=== PATIENT | female | born 1995 | race Hispanic/Latino ===

== ENCOUNTER 2019-10-22 17:14 | Emergency (ER) | payer OTHER, SELFPAY ==
[2019-10-22 19:36] LABS: Urine Amorphous Sediment 1+ /HPF (NONE SEEN); Urine Bacteria <20 /HPF (<20); Urine Culture Reflex Order NOT NEEDED
[2019-10-22 19:37] LABS: Urine Blood 2+ (NEG); Urine Glucose NEGATIVE (NEG); Urine Protein NEGATIVE (NEG); Urine Specific Gravity >1.030 (1.005-1.030); Urine pH 6.5 (5.0-7.0)
--- NOTE | 2019-10-22 19:57 | RAD REPORT ---
EXAM DESCRIPTION: RAD - Forearm Right - 10/22/2019 7:43 pm CLINICAL HISTORY: Right arm pain FINDINGS: No fracture is seen.
--- NOTE | 2019-10-22 19:58 | RAD REPORT ---
EXAM DESCRIPTION: RAD - Humerus Right - 10/22/2019 7:52 pm CLINICAL HISTORY: Right arm pain FINDINGS: No fracture is seen
--- NOTE | 2019-10-22 19:58 | RAD REPORT ---
EXAM DESCRIPTION: RAD - Lumbar Spine 3 Views - 10/22/2019 7:49 pm CLINICAL HISTORY: Back pain FINDINGS: The alignment of the lumbar spine is satisfactory. No fracture or dislocation is seen.
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
[2019-10-22] MEDS ORDERED: ACETAMINOPHEN 325 MG TABLET ONE (20:25)
[2019-10-22] MEDS ORDERED: IBUPROFEN 400 MG TAB ONE (20:25)
[2019-10-22 20:51] VITALS: BP 128/70; TEMP 98.2; O2SAT 98
== END 2019-10-22 20:42 | disposition home or self-care (01) ==
LOC: ER 17:14
DX: M79.601 Pain in right arm (principal); M25.551 Pain in right hip; V49.40XA Driver injured in collision with unspecified motor vehicles in traffic accident, initial encounter
CPT/HCPCS: 72100; 72170; 81003; 81015; 81025; 99284

== ENCOUNTER 2022-05-23 01:55 | Emergency (ER) | payer BC, OTHER ==
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
[2022-05-23 02:55] LABS: Urine Blood 3+ (Negative); Urine Glucose Negative (Negative); Urine Protein 2+ (Negative); Urine Specific Gravity >=1.030 (1.005-1.030); Urine pH 5.5 (5.0-7.0)
[2022-05-23 03:01] LABS: Absolute Lymphocytes (CBC) 3.1 K/uL (0.7-4.9); Hematocrit 33.8 % (36.0-45.0); MCV 84.9 fL (80-100); MPV 7.2 fL (7.6-11.3); RBC Red Blood Cell Count 3.99 M/uL (3.86-4.86)
[2022-05-23 03:08] LABS: Urine Bacteria <20 /HPF (<20); Urine Mucus Slight /HPF (None Seen); Urine RBC >50 /HPF (None Seen)
[2022-05-23 03:55] LABS: ALT/SGPT 17 U/L (13-56); AST/SGOT 3 U/L (15-37); Alkaline Phosphatase 61 U/L (45-117); BUN Blood Urea Nitrogen 7 mg/dL (7-18); Bicarbonate 24 mmol/L (21-32); Bilirubin Total 0.4 mg/dL (0.2-1.0); Glomerular Filtration Rate 127 ml/min (=/>90); Glucose Level 103 mg/dL (74-106); Potassium 3.5 mmol/L (3.5-5.1); Sodium Level 137 mmol/L (136-145)
[2022-05-23 03:56] LABS: Albumin 3.2 g/dL (3.4-5.0); HCG, Quantitative 48983 mIU/mL (1-3); Protein, Total 7.4 g/dL (6.4-8.2)
--- NOTE | 2022-05-23 04:18 | ER ---
Nurse's Notes [facility] Name: Rosette Olson Age: 26 yrs Sex: Female : 1995 Arrival Date: 05/23/2022 Time: 01:59 Bed 6 Private MD: Diagnosis: Vaginal bleeding in first trimester Presentation: 05/23 02:11 Chief complaint: Patient states: I started bleeding a couple hours ago, its bright red aa9 blood, I have minimal cramping that comes and goes, I am 11 weeks . Ebola Screen: No symptoms or risks identified at this time. Initial Sepsis Screen: Does the patient meet any 2 criteria? No. Patient's initial sepsis screen is negative. Does the patient have a suspected source of infection? No. Patient's initial sepsis screen is negative. Risk Assessment: Do you want to hurt yourself or someone else? Patient reports no desire to harm self or others. Onset of symptoms was May 23, 2022. 02:11 Method Of Arrival: Ambulatory aa9 02:11 Acuity: JOHNNY 3 aa9 02:16 Coronavirus screen: Vaccine status: Patient reports receiving the 2nd dose of the covid aa9 vaccine. Triage Assessment: 02:13 General: Appears in no apparent distress. uncomfortable, obese, Behavior is calm, aa9 cooperative, appropriate for age. Pain: Complains of pain in right lower quadrant and left lower quadrant Is intermittent. EENT: No signs and/or symptoms were reported regarding the EENT system. Neuro: Level of Consciousness is awake, alert, obeys commands, Oriented to person, place, time, situation. Cardiovascular: Patient's skin is warm and dry. Respiratory: Airway is patent Respiratory effort is even, unlabored. GI: No signs and/or symptoms were reported involving the gastrointestinal system. : Reports vaginal bleeding that is bright red. Derm: Skin is intact, is healthy with good turgor. 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 - Social history:: Smoking status: Patient denies any tobacco usage or history of. Screenin:14 Abuse screen: Denies threats or abuse. Denies injuries from another. Nutritional aa9 screening: No deficits noted. Tuberculosis screening: No symptoms or risk factors identified. 04:25 [facility] ED Fall Risk Assessment (Adult) Score/Fall Risk Level 0 - 2 = Low Risk. as6 Assessment: 02:02 General: Appears comfortable, Behavior is calm, cooperative. Pain: Denies pain. Neuro: ha1 Level of Consciousness is awake, alert, obeys commands, Oriented to person, place, time, situation. Cardiovascular: Capillary refill < 3 seconds Patient's skin is warm and dry. Respiratory: Airway is patent Respiratory effort is even, unlabored, Respiratory pattern is regular, symmetrical. GI: Abdomen is non-distended, obese. : Urine is blood tinged, Reports vaginal bleeding that is light flow. EENT: No deficits noted. No signs and/or symptoms were reported regarding the EENT system. Derm: Skin is pink, warm \T\ dry. Musculoskeletal: Circulation, motion, and sensation intact. Range of motion: intact in all extremities. 03:02 Reassessment: Patient and/or family updated on plan of care and expected duration. Pain ha1 level reassessed. Patient is alert, oriented x 3, equal unlabored respirations, skin warm/dry/pink. Patient denies pain at this time. 04:00 Reassessment: Patient and/or family updated on plan of care and expected duration. Pain ha1 level reassessed. Patient is alert, oriented x 3, equal unlabored respirations, skin warm/dry/pink. Patient denies pain at this time. Vital Signs: 02:02 BP 118 / 88; Pulse 94; Resp 21; Pulse Ox 99% on R/A; ha1 02:11 BP 118 / 88; Pulse 94; Resp 23 S; Temp 97.8(O); Pulse Ox 99% on R/A; aa9 02:16 Weight 113.4 kg (R); Height 5 ft. 3 in. (160.02 cm) (R); aa9 03:00 BP 102 / 50; Pulse 84; Resp 20 S; Pulse Ox 99% on R/A; ha1 04:00 BP 120 / 64; Pulse 78; Resp 18 S; Pulse Ox 99% on R/A; ha1 02:16 Body Mass Index 44.29 (113.40 kg, 160.02 cm) aa9 ED Course: 01:59 Patient arrived in ED. ja2 02:00 Tammy Butler MD is Attending Physician. sd2 02:03 Shashank Carlson, RN is Primary Nurse. as6 02:12 Triage completed. aa9 02:14 Arm band placed on. aa9 02:14 Patient has correct armband on for positive identification. Bed in low position. Call aa9 light in reach. Adult w/ patient. 02:40 Inserted saline lock: 22 gauge in left upper arm, using aseptic technique. Blood ha1 collected. 02:47 CMP Sent. ha1 02:47 Abo/rh Typing Sent. ha1 02:47 CBC with Diff Sent. ha1 02:47 HCG-Quantitative Sent. ha1 03:26 US 1st Trimest Single 1st Fetus In Process Unspecified. EDMS 04:24 No provider procedures requiring assistance completed. IV discontinued, intact, as6 bleeding controlled, No redness/swelling at site. Pressure dressing applied. Administered Medications: No medications were administered Medication: 04:24 VIS not applicable for this client. as6 Outcome: 04:17 Discharge ordered by . sd2 04:24 Discharged to home ambulatory, with family. as6 04:24 Condition: stable 04:24 Discharge instructions given to patient, Instructed on discharge instructions, follow up and referral plans. Demonstrated understanding of instructions, follow-up care. 04:25 Patient left the ED. as6 Signatures: Dispatcher [employer] EDMA Dru NanciShashank Ag, RN RN as6 Tammy Butler MD MD sd2 Augustina Myers, RN RN aa9 Sandy Snyder, RN RN ha1
--- NOTE | 2022-05-23 04:19 | EDPHYS ---
Physician Documentation [facility] Name: Rosette Olson Age: 26 yrs Sex: Female : 1995 Arrival Date: 05/23/2022 Time: 01:59 Bed 6 Private MD: ED Physician Tammy Butler HPI: 05/23 02:20 This 26 yrs old Female presents to ER via Ambulatory with complaints of sd2 Vaginal Bleeding, + Preg <12wks. 02:20 26 yo F presents with CC of vaginal bleeding that started tonight. Reports she was sd2 laying in bed when she saturated her underwear with bright red blood. Denies any passage of tissue or clots and bleeding has slowed since then with currently spotting. Reports associated lower abdominal cramping. She is 11 weeks and has had an US demonstrating an IUP at 7.5 weeks. She is with history of a prior miscarriage. . 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 - Social history:: Smoking status: Patient denies any tobacco usage or history of. ROS: 02:20 Constitutional: Negative for fever, chills, and weight loss, Eyes: Negative for injury, sd2 pain, redness, and discharge, Cardiovascular: Negative for chest pain, palpitations, and edema, Respiratory: Negative for shortness of breath, cough, wheezing. 02:20 : Negative for dysuria, urinary frequency, hesitancy, urgency and hematuria. Positive for vaginal bleeding. 02:20 MS/Extremity: Negative for injury and deformity, Skin: Negative for injury, rash, and discoloration, Neuro: Negative for headache, numbness and tingling. 02:20 Abdomen/GI: Positive for abdominal cramps, Negative for abdominal pain, nausea, vomiting, diarrhea. Exam: 02:20 Constitutional: This is a well developed, well nourished patient who is awake, alert, sd2 and in no acute distress. Head/Face: Normocephalic, atraumatic. Eyes: EOMI, normal conjunctiva bilaterally Chest/axilla: Normal chest wall appearance and motion. Nontender with no deformity. Cardiovascular: Regular rate and rhythm with a normal S1 and S2. No gallops, murmurs, or rubs. 2+ distal pulses. Respiratory: Lungs have equal breath sounds bilaterally, clear to auscultation and percussion. No rales, rhonchi or wheezes noted. No increased work of breathing, no retractions or nasal flaring. Abdomen/GI: Soft, ND, mild lower abdominal tenderness without rebound or guarding Skin: Warm, dry with normal turgor. Normal color with no rashes, no lesions, and no evidence of cellulitis. MS/ Extremity: Pulses equal, no cyanosis. Neurovascular intact. Full, normal range of motion. Ambulatory without difficulty. Psych: Awake, alert, with orientation to person, place and time. Behavior, mood, and affect are within normal limits. Vital Signs: 02:02 BP 118 / 88; Pulse 94; Resp 21; Pulse Ox 99% on R/A; ha1 02:11 BP 118 / 88; Pulse 94; Resp 23 S; Temp 97.8(O); Pulse Ox 99% on R/A; aa9 02:16 Weight 113.4 kg (R); Height 5 ft. 3 in. (160.02 cm) (R); aa9 03:00 BP 102 / 50; Pulse 84; Resp 20 S; Pulse Ox 99% on R/A; ha1 04:00 BP 120 / 64; Pulse 78; Resp 18 S; Pulse Ox 99% on R/A; ha1 02:16 Body Mass Index 44.29 (113.40 kg, 160.02 cm) aa9 MDM: 02:10 Patient medically screened. sd2 02:20 Differential diagnosis: ectopic , threatened , incomplete , sd2 anemia among others. Data reviewed: vital signs, nurses notes. 04:15 Data reviewed: lab test result(s), radiologic studies. Counseling: I had a detailed sd2 discussion with the patient and/or guardian regarding: the historical points, exam findings, and any diagnostic results supporting the discharge/admit diagnosis, lab results, radiology results, the need for outpatient follow up, to return to the emergency department if symptoms worsen or persist or if there are any questions or concerns that arise at home. ED course: Labs and imaging reviewed. HCG appropriate for dates. Rh negative but patient not at threshold for needing Rhogam at this time. US with normal IUP and FHTs. Advised patient of results and need for follow up for repeat HCG in 48 hours with her OBGYN. She is comfortable with plan for discharge and outpatient follow up and verbalizes understanding of strict return precautions. . 05/23 02:19 Order name: CBC with Diff; Complete Time: 03:22 sd2 05/23 02:19 Order name: Abo/rh Typing; Complete Time: 03:37 sd2 05/23 02:19 Order name: CMP; Complete Time: 04:14 sd2 05/23 02:19 Order name: Urine Microscopic Only; Complete Time: 03:22 sd2 05/23 02:19 Order name: HCG-Quantitative; Complete Time: 04:14 sd2 05/23 02:55 Order name: Urine Dipstick-Ancillary; Complete Time: 03:22 EDMS 05/23 02:19 Order name: Urine Dipstick-Ancillary (obtain specimen); Complete Time: 03:07 sd2 05/23 02:19 Order name: 1st Trimest Single 1st Fetus sd2 05/23 03:02 Order name: Urine --Ancillary (enter results) wm Administered Medications: No medications were administered Disposition Summary: 05/23/22 04:17 Discharge Ordered Location: Home sd2 Problem: new sd2 Symptoms: have improved sd2 Condition: Stable sd2 Diagnosis - Vaginal bleeding in first trimester sd2 Followup: sd2 - With: Private Physician - When: 48 Hours - Reason: Repeat Beta-HCG (48 Hours) Discharge Instructions: - Discharge Summary Sheet sd2 - Threatened Miscarriage sd2 Forms: - Medication Reconciliation Form sd2 - Thank You Letter sd2 - Antibiotic Education sd2 - Prescription Opioid Use sd2 Signatures: Dispatcher [employer] Shashank Velasquez, DOMINIK RN as6 Tammy Butler MD MD sd2 Augustina Myers RN RN aa9
[2022-05-23 04:25] LABS: Urine Specific Gravity/Preg >1.030 (1.005-1.030)
[2022-05-23 04:35] VITALS: O2SAT 99
[2022-05-23 04:40] VITALS: TEMP 97.8
[2022-05-23 04:51] VITALS: BP 120/64
--- NOTE | 2022-05-23 19:38 | RAD REPORT ---
EXAM DESCRIPTION: US , Limited CLINICAL HISTORY: The patient is 26 years old and is Female; VAGINAL BLEEDING TECHNIQUE: Real-time limited ultrasound of the maternal uterus with image documentation. COMPARISON: No relevant prior studies available. FINDINGS: BIOMETRICS: Single living IUP with heart tones measuring approximately 169 bpm, e stimated gestational age 11 weeks 0 days +/- 6 days by CRL (4.4 cm). PLACENTA: Posterior placenta. UTERUS: Myometrial contraction incidentally noted. The uterus measures 6.4 x 10.6 x 7.3 cm. CERVIX: Small nabothian cyst. ADNEXA: Unremarkable. The right ovary measures 3.4 x 1.6 x 3.2 cm. The left ovary measures 4.4 x 2 x 3.3 cm. No abnormal intrapelvic free fluid or adnexal mass. IMPRESSION: Single living IUP with heart tones measuring approximately 169 bpm, estimated gest ational age 11 weeks 0 days +/- 6 days by CRL (4.4 cm). Electronically signed by: Cong Pacheco MD 05/23/2022 3:48 AM LEGAL RECRUITER Due to temporary technical issues with the PACS/Fluency reporting system, reports are being signed by the in house radiologists without review as a courtesy to insure prompt reporting. The interpreting radiologist is fully responsible for the content of the report.
== END 2022-05-23 04:25 | disposition home or self-care (01) ==
LOC: ER 01:55
DX: O20.9 Hemorrhage in early pregnancy, unspecified (principal); Z3A.11 11 weeks gestation of pregnancy
CPT/HCPCS: 36415; 76801; 80053; 81003; 81015; 81025; 84702; 85025; 86900; 86901; 99284

== ENCOUNTER 2024-03-14 23:17 | Emergency (ER) | payer OTHER ==
--- OUTSIDE RECORDS SUMMARY | 2024-03-14 23:21 | XMS REPORT | Continuity of Care Document ---
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 NONREACTIVE Done by [employer] HIV Ag/Ab Combo Screen COMPREHENSIVE METABOLIC [id number] 10:26:00* Test Item Value Reference Range Interpretation Comme nts SODIUM (test code = NA) 138 mEq/L 135-145 N POTASSIUM (test code = K) 4.4 mEq/L 3.5-5.0 N CHLORIDE (test code = CL) 102 mEq/L 100-115 N CARBON DIOXIDE (test code = CO2) 27 mEq/L 22-31 N ANION GAP (test code = GAP) 13.40 10-20 N GLUCOSE (test code = GLU) 79 mg/dL 65-110 N BLOOD UREA NITROGEN (test code = BUN) 4 mg/dL 7-18 L GLOMERULAR FILTRATION RATE (test code = GFR) 132 ml/min >60 N The Glomerular Filtration Rate is a calculated parameterbased on serum Creatinine, patient age and sex. GFR valuesless than 60 mL/min/1.73 square meters are indicative ofChronic Kidney Disease. Values less than 15 mL/min/1.73square meters indicate Kidney failure. The calculation forGFR is based on the CKD-EPI (202) calculation. This formulais race indifferent and is the recommended formula for GFRby the National Kidney Foundation for Adults.The GFR will not calculate if the sex is unknown or if thepatient's age is <18 years. CREATININE (test code = CREAT) 0.5 mg/dL 0.5-1.0 N TOTAL PROTEIN (test code = PROT) 6.4 gm/dL 6.3-8.2 N ALBUMIN (test code = ALB) 2.9 gm/dL 3.4-4.8 L CALCIUM (test code = CA) 9.0 mg/dL 8.4-10.2 N BILIRUBIN TOTAL (test code = BILT) 0.4 mg/dL 0.2-1.0 N SGOT/AST (test code = AST) 8 units/L 15-37 L SGPT/ALT (test code = ALT) 12 units/L 12-78 N ALKALINE PHOSPHATASE TOTAL (test code = ALKP) 62 units/L 46-116 N CBC W/AUTO [id number] 09:20:00* Test Item Value Reference Range Interpretation Comme nts WHITE BLOOD CELL (test code = WBC) 10.8 K/mm3 6.5-12.3 N RED BLOOD CELL (test code = RBC) 3.77 M/mm3 3.51-4.69 N HEMOGLOBIN (test code = HGB) 11.1 g/dL 10.1-13.8 N HEMATOCRIT (test code = HCT) 32.8 % 32.5-41.8 N MEAN CELL VOLUME (test code = MCV) 87.0 fL 84.6-96.6 N MEAN CELL HGB (test code = MCH) 29.4 pg 27.3-33.9 N MEAN CELL HGB CONCETRATION ( test code = MCHC) 33.8 gm/dL 32.0-34.2 N RED CELL DISTRIBUTION WIDTH (test code = RDW) 13.3 % 12.2-16.3 N PLATELET COUNT (test code = PLT) 233 K/mm3 134-363 N MEAN PLATELET VOLUME (test c ode = MPV) 9.7 fL 9.2-12.7 N NEUTROPHIL % (test code = NT%) 73.5 % 57.9-77.3 N LYMPHOCYTE % (test code = LY%) 20.7 % 14.5-29.7 N MONOCYTE % (test code = MO%) 5.0 % 3.6-10.2 N EOSINOPHIL % (test code = EO%) 0.3 % 0.0-3.0 N BASOPHIL % (test code = BA%) 0.2 % 0.1-0.9 N NEUTROPHIL # (test code = NT#) 7.9 K/mm3 LYMPHOCYTE # (test code = LY#) 2.2 K/mm3 MONOCYTE # (test code = MO#) 0.5 K/mm3 EOSINOPHIL # (test code = EO#) 0.03 K/mm3 BASOPHIL # (test code = BA#) 0.0 K/mm3 RBC MORPHOLOGY REQUIRED (sofiya t code = RBCM) NORMAL NORMAL PLATELET MORPHOLOGY REQUIRED (test code = PLTMR) NORMAL NORMAL URINALYSIS [id number] 08:05:00* Test Item Value Reference Range Interpretation Comme nts UA COLOR (test code = COLU) STRAW YELLOW UA APPEARANCE (test code = APPU) CLEAR CLEAR UA GLUCOSE DIPSTICK (test co de = DGLUU) NEGATIVE NEG UA BILIRUBIN DIPSTICK (test code = BILU) NEGATIVE NEG UA KETONE DIPSTICK (test cod e = KETU) NEGATIVE NEG UA SPECIFIC GRAVITY (test co de = SGU) 1.004 1.001-1.035 N UA BLOOD DIPSTICK (test code = KIKI) 2+ NEG A UA PH DIPSTICK (test code = SOFIE) 7.0 5-9 UA PROTEIN DIPSTICK (test co de = PROU) NEGATIVE NEG UA UROBILINIOGEN DIPSTICK (test code = URO) NEGATIVE mg/dL NEG UA NITRITE DIPSTICK (test co de = MARILYNN) NEG NEG UA LEUKOCYTE ESTERASE DIPSTI CK (test code = LEUU) NEG NEG UA WBC (test code = WBCU) 0-2 #/hpf NONE SEEN UA RBC (test code = RBCU) 3-5 #/hpf NONE SEEN A UA EPITHELIAL CELLS (test co de = EPIU) RARE #/HPF RARE-FEW UA BACTERIA (test code = BACU) RARE /HPF RARE-FEW Specimen Comment: CARL POLANCO SAMPLE: CLEAN CATCH- US FET BIO PH MN W/O NST 2022-10-01 00:00:00 [facility] [place] [facility] : 1995 Sex: F Patient Name: OXANA LARSON Unit No: [id number] EXAMS: CPT CODE: [id number] US FET BIO PH MN W/O NST 94361 PROCEDURE INFORMATION: Exam: US , Limited Exam date and time: 10/01/2022 9:54 AM Age: 26 years old Clinical indication: Condition or disease; Other: Vaginal bleeding 30 wks; Lmp or gestational age (weeks): 30wks; 2nd ; ; Additional info: 30.0 weeks, vaginal bleeding TECH NIQUE: Imaging protocol: Real-time ultrasound of the maternal uterus with image documentation. Exam focused on the clinical indication. COMPARISON: No relevant prior studies available. Findings: Presentation: Vertex. Heart rate: 132 bpm. Placenta: Posterior. grade 2 placenta with no evidence of placenta previa nor retroplacental fluid collection. Amniotic fluid: Adequate with amniotic fluid index of 15.4 cm. Cervix: 3.6 cm. Impression: Live intrauterine gestation. PROCEDURE INFORMATION: Exam: US Biophysical Profile Without Non-Stress Test Exam date and time: 10/01/2022 9:54 AM Age: 26 years old Clinical indication: Condition or disease; Other: Vaginal bleeding 30 wks; Lmp or gestational age (weeks): 30wks; 2nd ; ; Additional info:30.0 weeks, vaginal bleeding TECHNIQUE: Imaging protocol: US biophysical profile without non-stress testing. COMPARISON: No relevant prior studies available. FINDINGS: BIOPHYSICAL PROFILE: breathing movement (BPP): 2 out of 2. body movement (BPP): 2 out of 2. tone (BPP): 2 out of2. Amniotic fluid (BPP): 2 out of 2. [facility] NAME: OXANA LARSON Radiology Department PHYS: Malini Bowers MD [address] : 1995 AGE: 26 SEX: F [place], [place] [address] LOC: F.3042 A PHONE #: [phone] EXAM DATE: 10/01/2022 STATUS: ADM IN FAX #: [phone] RAD NO: Page 1 Signed Report (CONTINUED) Patient Name: OXANA LARSON Unit No: [id number] EXAMS: CPT CODE: [id number] US FET BIO PH MN W/O NST 29647 (Continued) IMPRESSION: Biophysical profile score is 8 out of 8. at 1116 Reported and signed by: Garland Perez MD CC: Malini Alejo MD; Carrillo Worley MD Technologist: Nanci Law RDMS Probe: Trnscrbd D/ (1116) GCD.CPS Orig Print D/T: S: 10/01/2022 (1116) [facility] NAME: CARLOS LARSONA Radiology Department PHYS: Malini Bowers MD [address] : 1995 AGE: 26 SEX: F [place] [address] LOC: F.3042 A PHONE #: [phone] EXAM DATE: 10/01/2022 STATUS: ADM IN FAX #: [phone] RAD NO: Page 2 Signed Report Patient Name: OXANA LARSON Unit No: [id number] EXAMS: CPT CODE: [id number] FET BIO PH MN W/O NST [address]59[address] (Continued) [facility] NAME: OXANA LARSON Radiology De partment PHYS: Malini Bowers MD [address] : 1995 AGE: 26 SEX: F [place] [address] LOC: F.3042 A PHONE #: [phone] EXAM DATE: 10/01/2022 STATUS: ADM IN FAX #: [phone] RAD NO: Page 3 Signed ReportRHO (D) IMMUNE [id number] 04:24:28* Test Item Value Reference Range Interpretation Comme nts RHIG CANDIDATE? (test code = 5055) Yes- see comment A Patient is a candidate for RhIg- Patient is Rh Negative and currently .Performe d at [facility] Laboratory Services - [facility] Blood [address] [place] [address]Lhtg Free: [phone] No. [id number] Lab Interpretation (test code = 40223-7) Abnormal [facility] (Lab Only)2022-05-24 04:23:22* Test Item Value Reference Range Interpretation Comme nts ABO & RH (test code = 20) O Negative Performed at [facility] Laboratory [facility] Blood [address] Free: [phone] No. [id number] [facility] and Screen - ONCE [id number] 04:01:23 * Test Item Value Reference Range Interpretation Comme nts ABO & RH (test code = 20) O Negative Performed at [facility] Blood [address] Free: [phone] No. [id number] IAT (test code = 1185) Negative Performed at [facility] Blood [address] Free: [phone] No. [id number] [facility]villeTHYROID STIMULATING [id number] 19:24:00 * Test Item Value Reference Range Interpretation Comme nts TSH (test code = 8796431317) See_Comment [[employer]] The system which generated this result transmitted reference range: 0.45 - 4.70 mIU/L. The reference range was not used to interpret this result as normal/abnormal. Lab Interpretation (test code = 24994-0) Normal [facility]ville[facility] STIMUL[facility] [id number] 19:24:00 * Test Item Value Reference Range Interpretation Comme nts TSH (test code = 2655358066) See_Comment [[employer]] The system which generated this result transmitted reference range: 0.45 - 4.70 mIU/L. The reference range was not used to interpret this result as normal/abnormal. Lab Interpretation (test code = 37044-7) Normal [facility] GreenvilleLIPID PANEL (77844)(TOTAL CHOLESTEROL, TRIGLYCERIDES, HDL)2019-09-19 18:50:00* Test Item Value Reference Range Interpretation Comme nts CHOL (test code = 1017032071) 161 mg/dL 120-200 HDL (test code = 3965482132) 54 mg/dL >50 HDLC RATIO (test code = 8148083064) See_Comment [[employer]] The system which generated this result transmitted reference range: <=4.5. The reference range was not used to interpret this result as normal/abnormal. TRIG (test code = 3458289836) 63 mg/dL 30-170 LDL CHOL (test code = 79562-0) 94 mg/dL See_Comment [[employer]] The system which generated this result transmitted reference range: <=160. The reference range was not used to interpret this result as normal/abnormal. VLDL (test code = 8311223737) 13 mg/dL 5-60 Lab Interpretation (test code = 48745-3) Normal [facility] METABOLIC PANEL (NA, K, CL, CO2, GLUCOSE, BUN, CREATININE, CA)2019-09-19 18:50:00* Test Item Value Reference Range Interpretation Comme nts NA (test code = 8654950320) 138 mmol/L 135-145 K (test code = 5389356570) 5.0 mmol/L 3.5-5 CL (test code = 2779614560) 103 mmol/L 98-108 CO2 TOTAL (test code = 5315898994) 26 mmol/L 23-31 AGAP (test code = 0654679264) 2-16 BUN (test code = 1562192064) 12 mg/dL 7-23 GLUCOSE (test code = 2015716460) 113 mg/dL 70-110 H CREATININE (test code = 1167198615) 0.52 mg/dL 0.5-1.04 CALCIUM (test code = 9149659320) 9.2 mg/dL 8.6-10.6 eGFR Calculation (Non-) (test code = 8422959554) mL/min/1.73m2 eGFR Calculation () (test code = 1128204185) mL/min/1.73m2 TIM (test code = TIM) Association of [...] or abnormalities in imaging tests). Lab Interpretation (test code = 62094-8) Abnormal [facility]ville[facility]IPID PANEL (32697)(TOTAL CHOLESTEROL, TRIGLYCERIDES, HDL)2019-09-19 18:50:00* Test Item Value Reference Range Interpretation Comme nts CHOL (test code = 3489129575) 161 mg/dL 120-200 HDL (test code = 2016686582) 54 mg/dL >50 HDLC RATIO (test code = 6719647741) See_Comment [[employer]] The system which generated this result transmitted reference range: <=4.5. The reference range was not used to interpret this result as normal/abnormal. TRIG (test code = 1112193104) 63 mg/dL 30-170 LDL CHOL (test code = 32869-5) 94 mg/dL See_Comment [[employer]ira] The system which generated this result transmitted reference range: <=160. The reference range was not used to interpret this result as normal/abnormal. VLDL (test code = 4068015612) 13 mg/dL 5-60 Lab Interpretation (test code = 80536-7) Normal [facility] METABOLIC PANEL (NA, K, CL, CO2, GLUCOSE, BUN, CREATININE, CA)2019-09-19 18:50:00* Test Item Value Reference Range Interpretation Comme nts NA (test code = 0771378555) 138 mmol/L 135-145 K (test code = 1495662034) 5.0 mmol/L 3.5-5 CL (test code = 4207919402) 103 mmol/L 98-108 CO2 TOTAL (test code = 0304119674) 26 mmol/L 23-31 AGAP (test code = 1403058176) 2-16 BUN (test code = 3659405452) 12 mg/dL 7-23 GLUCOSE (test code = 2452500511) 113 mg/dL 70-110 H CREATININE (test code = 7446827928) 0.52 mg/dL 0.5-1.04 CALCIUM (test code = 8065357491) 9.2 mg/dL 8.6-10.6 eGFR Calculation (Non-) (test code = 3331326153) mL/min/1.73m2 eGFR Calculation () (test code = 7230008839) mL/min/1.73m2 TIM (test code = TIM) Association of [...] or abnormalities in imaging tests). Lab Interpretation (test code = 57082-0) Abnormal [facility]ville[facility]YCOS[facility]ATED HEMOGLOBIN (A1C)2019-09-19 17:42:00* Test Item Value Reference Range Interpretation Comme nts HGB A1C (test code = 4548-4) 5.7 % 4-6 Lab Interpretation (test cod e = 55095-0) Normal [facility] HEM[facility]GLOBIN (A1C)2019-09-19 17:42:00* Test Item Value Reference Range Interpretation Comme nts HGB A1C (test code = 4548-4) 5.7 % 4-6 Lab Interpretation (test cod e = 40485-2) Normal [facility] Notes Date/Time Note Provider Source 2022-11-30 09:34:00 [id number] [facility] [address], [place] [address] PATIENT NAME: OXANA LARSON ADMIT DATE: 11/23/22 ACCOUNT NO: [id number] ROOM NO: F.2001 AGE: 26 SEX: F ADMITTING PHYSICIAN: Carrillo Ware MD ATTENDING PHYSICIAN: Carrillo Ware MD Provider Query QUERY TEXT: Condition Blood 360MD Query related questions should be directed to: [facility] Coding Query Helpline Based on your clinical judgment, can you provide the known or suspected condition(s) that represent(s) the clinical indicators listed below? The medical record reflects the diagnosis/procedure of [Insert diagnosis/procedure] and associated [Insert disease process, trauma or surgery]. [Insert source document(s) and date(s)]: The patient's Clinical Indicators include: s/p delivery - OB Delivery Note 11/24/2022 EBL at delivery (ml's): 700 - OB Delivery Note 11/24/2022 HEMATOCRIT (%) 25.7L 31.3L HEMOGLOBIN (g/dL) 8.4L 10.5 VITAMIN 1 TAB 08:04 1 TAB Oral Options provided: -- Blood loss anemia, Please specify the acuity (i.e., acute, chronic, acute on chronic). -- Anemia of chronic disease, Please specify the chronic disease. -- Iron deficiency anemia -- Chemotherapy induced anemia, Please specify drug. -- Drug induced anemia, Please specify drug. -- Idiopathic aplastic anemia -- Neoplastic anemia -- Other - I will add my own diagnosis -- Dismiss - Not applicable / Not valid -- Dismiss - Clinically unable to determine / Unknown -- Assign to another provider QUERY RESPONSE: Acute blood loss anemia on top of chronic iron deficiency anemia. Query created by: HEATHER SHOOK on 11/30/2022 2:01 AM at 0934 PATIENT NAME: OXANA LARSON [facility] 2022-11-26 08:41:00 [facility]) OB Disch REPORT#:[id number] REPORT STATUS: Signed DATE:11/26/22 TIME: 08 PATIENT: OXANA LARSON UNIT #: [id number] ROOM/BED: 2002 : [birth year] AGE: 26 SEX: F ATTEND: Carrillo Ware MD ADM AUTHOR: Carrillo Ware MD * ALL edits or amendments must be made on the electronic/computer document * Subjective Subjective Admission EGA: Weeks: 37 Days: 4 Status/day: post operative (day 2) Free Text Subj Notes Free Text Subj Notes: doing well. pain well controlled. tolerating po. voiding. ambulating. + flatus , no BM yet. Objective General VS: Vital Signs Date Temp Pulse Resp B/P B/P Mean Pulse Ox FiO2 11/25-11/26 97.7-98.4 50-54 17-18 98-110/53-66 78.3-80.8 98 Last Documented: Result Date Time B/P 110/66 11/27 727 B/P Mean 80.8 11/27 727 Temp 98.4 11/27 727 Pulse 50 11/27 727 Resp 17 11/27 727 Pulse Ox 98 11/26 0027 PATIENT WEIGHT: Weight (lb): 252 Weight (oz): Weight (kg): 114.500 Physical Exam Neuro: Exam: alert, oriented x3, normal speech Abdomen: post gravid, soft, no abnormal tenderness, no guarding, no rebound tenderness Incision site: well approximated edges, dry, no drainage, no inflammation Fundus: firm, below the umbilicus, non-tender Lochia: normal Lower extremities: Edema: trace Results Findings/Data: Laboratory Tests: 11/25 0615 Hematology WBC (6.5 - 12.3 K/mm3) 12.8 H RBC (3.51 - 4.69 M/mm3) 2.93 L Hgb (10.1 - 13.8 g/dL) 8.4 L Hct (32.5 - 41.8 %) 25.7 L MCV (84.6 - 96.6 fL) 87.7 MCH (27.3 - 33.9 pg) 28.7 MCHC (32.0 - 34.2 gm/dL) 32.7 RDW (12.2 - 16.3 %) 13.5 Plt Count (134 - 363 K/mm3) 175 MPV (9.2 - 12.7 fL) 10.5 Neut % (Auto) (57.9 - 77.3 %) 62.4 Lymph % (Auto) (14.5 - 29.7 %) 30.2 H [place] % (Auto) (3.6 - 10.2 %) 6.4 Eos % (Auto) (0.0 - 3.0 %) 0.2 Baso % (Auto) (0.1 - 0.9 %) 0.4 Neut # (Auto) (K/mm3) 8.0 Lymph # (Auto) (K/mm3) 3.9 [place] # (Auto) (K/mm3) 0.8 Eos # (Auto) (K/mm3) 0.02 Baso # (Auto) (K/mm3) 0.1 Discharge Summary General Problem List/A P: 1. Gestational diabetes 2. delivery delivered Assessment: nml progress Date of admission: Date of admission: 11/23/22 Admission diagnosis: diabetes-gestational Hospital course: cervical ripening, induction of labor, nml postop/postpart care , intolerance to labor leading to primary delivery. Discharge condition: stable Discharge to: Home/Self Care Discharge diagnosis: full term LTCS; GDM; intolerance to labor. Discharge management: less than 30 mins Baby A: status: live born Gender: male 1 minute: 8 5 minutes: 9 Anomalies: none Nursing data: The data set between the solid lines has been imported from nursing documentation. Any exceptions have been noted below under Provider comments. Delivery date A: 11/24/22 Delivery time infant A: 0608 Birthweight (gm) A: 2530 Feeding preference: Gender infant A: Male 1 minute A: 5 minutes infant A: 10 minutes infant A: Provider comments on imported nursing data: [] Plan: routine care Discharge Instructions Instructions: instr and warnings rev'd Diet: Regular Activity: Light Duty, No Driving, No [place] for 6 Wks, No Lifting >10lbs Additional discharge routines: Attending Follow-Up (2 and 6 wks) Contraception discussed: abstinence for 4-6 weeks, will discuss at PP visit Prescriptions: e-prescribe Rx drug database reviewed: yes at 0845 RPT #:[id number] END OF REPORT [facility] 2022-11-25 09:18:00 [facility] [place] [facility]) OB Postpart Progr Note REPORT#:[id number] REPORT STATUS: Signed DATE:11/25/22 TIME: 917 PATIENT: OXANA LARSON UNIT #: [id number] ROOM/BED: : 94 AGE: 26 SEX: F ATTEND: Carrillo Ware MD ADM AUTHOR: Chrissie Wesley NP * ALL edits or amendments must be made on the electronic/computer document * Subjective Subjective Status/Day: post operative (Day 1) Comments: Doing well. Pain well controlled with meds. +Voiding passing gas. Trying to breastfeed Objective Nursing Documentation Review Nursing Data: The data set between the solid lines has been imported from nursing documentation. Any exceptions have been noted below under Provider comments. Feeding preference: Post hemorrhage risk score: LowRisk Provider comments on imported nursing data: [] General VS: Vital Signs: Date Time Temp Pulse Resp B/P B/P Pulse O2 O2 Flow FiO2 Mean Ox Delivery Rate 11/25 0816 98.2 56 18 101/60 74.0 11/25 0416 98.2 49 18 104/53 11/25 0010 98.5 11/24 1937 98.3 18 111/64 11/24 1835 98.2 73 18 106/69 11/24 1015 74.0 11/24 1015 97.7 50 16 100/59 99 11/24 0945 85.0 11/24 0945 47 27 121/57 100 11/24 0931 100.0 11/24 0931 148/71 11/24 0930 44 23 99 PATIENT WEIGHT: Weight (lb): 252 Weight (oz): Weight (kg): 114.500 Physical Exam Neuro: Exam: alert, oriented x3 Abdomen: soft, no abnormal tenderness Incision site: well approximated edges, dry, no drainage, no inflammation Fundus: firm, at the umbilicus Lower extremities: Edema: 1+ pitting Diagnosis, Assessment Plan Diagnosis, Assessment Plan Assessment: nml progress Plan: routine care at 0921 RPT #:[id number] END OF REPORT [facility] 2022-11-24 07:05:00 [facility] OB Delivery Note REPORT#:[id number] REPORT STATUS: Signed DATE:11/24/22 TIME: 704 PATIENT: OXANA LARSON UNIT #: [id number] ROOM/BED: [address] : [birth year] AGE: 26 SEX: F ATTEND: Carrillo Ware MD ADM AUTHOR: Carrillo Ware MD * ALL edits or amendments must be made on the electronic/computer document * OB Delivery Nursing Documentation Review Nursing data: The data set between the solid lines has been imported from nursing documentation. Any exceptions have been noted below under Provider comments. _ ROM date: 11/24/22 ROM time: 06 Membranes rupture method: AROM Amniotic fluid color: Clear Amniotic fluid amount: Steroids prior to arrival: Antibiotic prophylaxis given: Yes Post hemorrhage risk score: LowRisk Delivery date A: 11/24/22 Delivery time A: 0608 Birthweight (gm) A: 2530 Weight (lb) infant A: Weight (oz) A: Gender A: Male 1 minute A: 5 minutes A: 10 minutes A: Cord pH obtained A: Vacuum time A: Vacuum # pulls A: Vacuum # popoffs A: QBL at delivery: __ Provider comments on imported nursing data: [] Pre-delivery GBS status: GBS status: positive [place] evaluation at delivery: NRP certified personnel Admission EGA: Weeks: 37 Days: 4 Blood Loss/Details Blood loss at delivery: <1K: no sx hypovol=no hem, no more than expected EBL at delivery (ml's): 700 Baby A Information Baby A information Delivery date: 11/24/22 Delivery time: 607 status: live born Wt of baby (grams): 2530 Wt of baby (lbs/oz): Gender: male 1 minute: 8 5 minutes: 9 Presentation: vertex Anomalies: none Nuchal cord Baby A Nuchal cord: yes (tight,deliv.through) Op/Inv Proc Note - Brief )(Start date: 11/24/2022 )(Start time: 601 )( Procedure(s) performed: prim low transverse c/s )( Primary Surgeon: Corie Worley )( Material Handler 1St Shift(s): Jacqueline Welsh )( Pre-procedure diagnosis: 37 wk , A2DM, intolerance to labor )( Post-procedure diagnosis: 37 wk , A2DM, intolerance to labor )( Technique/Procedure: Risks/benefits discussed of delivery- pt agreed to proceed. She was taken to the OR, epidural was dosed, and found to be adequate. Ancef and azithromycin were given prior to the start of the procedure. She was prepped and draped in the standard sterile fashion in supine position with a leftward tilt. A painter catheter was in place. A pfannenstiel incision was performed with a scalpel, and the incision was taken down to the fascia. The fascia was entered sharply in the midline, and the fascial incision was extended bilaterally with franklin scissors. The rectus muscles were dissected from the fascia superior to the fascial incision. The peritoneum was entered bluntly, and stretch was used to expand the entry. An Carter retractor was placed. The hysterotomy was made in the lower uterine segment, and was extended using blunt cranio-caudal stretch. Membranes were ruptured on entry. Clear fluid was noted. The head was delivered, and the 's body delivered easily with fundal pressure. The cord was doubly clamped and cut after a 60 second delay, and the infant's nose and mouth were bulb suctioned. The was immediately vigorous. The infant was handed off to the waiting RN. The placenta was expressed and sent for pathology. The uterus was exteriorized, and cleared of clots and debris. 0- vicryl was used in a running fashion to close the hysterotomy. Two figure of eight sutures of 1 monocryl were placed due to continued bleeding. The bilateral ovaries and tubes were examined, and found to be normal. The uterus was replaced. The gutters were cleared of clots and debris. The uterus was re-examined, and remained hemostatic. The urine was clear in the painter. The Carter retractor was removed. The peritoneum was closed with 2-0 vicryl in a running fashion. The rectus muscles were examined, and cautery used where needed for hemostasis. The fascia was closed with 0 PDS. The subcutaneous tissue was irrigated, and cautery used where needed for hemostasis. A running suture of plain gut were used to re-approximate the subcutaneous fat. 4-0 monocryl was used for subcuticular closure. Dermabond was placed on top. Pt tolerated the procedure well. Counts correct x 2. server service assistant required as per standard of care for assistance with retraction, visualization, blotting, cutting suture, and application of fundal pressure. )( Estimated blood loss (ml): 700 )( Specimen removed/altered: placenta )( Complications: none Drain(s): none Tube(s): none Implant(s): none Fluids: 1600mL Urine output: 150mL clear )( Finding(s): vigorous male . normal uterus, bilateral tubes and ovaries. Condition: stable Delivery Delivery section indication: intolerance to labor Priority: indicated (add on) Decision to incision time: greater than 30 mins Antibiotic prior to incision: 1 dose )(SCDs applied activated: Yes Uterine incision: low transverse Consent: indication discussed, questions answered, pt consent to op delivery Mother's condition: mother stable Infant's condition: stable in room at 0711 RPT #:[id number] END OF REPORT [facility] 2022-11-24 03:16:00 [facility] ([facility]) OB Intrapart Prog Note REPORT#:[id number] REPORT STATUS: Signed DATE:11/24/22 TIME: 0316 PATIENT: OXANA LARSON UNIT #: [id number] ROOM/BED: [address] : 94 AGE: 26 SEX: F ATTEND: Carrillo Ware MD ADM AUTHOR: Carrillo Ware MD * ALL edits or amendments must be made on the electronic/computer document * Subjective Subjective Comments: recurrent decelerations on 4 units pitocin despite repositioning. Objective Nursing Documentation Review Nursing data: The data set between the solid lines has been imported from nursing documentation. Any exceptions have been noted below under Provider comments. __ ROM date: ROM time: __ Provider comments on imported nursing data: [] General VS: Last Documented: Result Date Time B/P Mean 76.0 11/24 0253 B/P 104/59 11/24 0253 Pulse 56 11/24 0253 Temp 98.4 11/24 0102 Resp 16 11/23 1758 Vital Signs Date Temp Pulse Resp B/P B/P Mean Pulse Ox FiO2 11/23-11/24 97.5-98.6 49-79 16-17 81-148/46-66 61.0-94.0 PATIENT WEIGHT: Weight (lb): 252 Weight (oz): Weight (kg): 114.500 Objective Cervical/ exam: Dilatation (cm): 2/50/-5 unchanged Suspected >/= 4500 grams No Uterine activity: Monitor: toco FHR Evaluation Baby A: Baby A baseline: 140 bpm Baby A variability: moderate 6-25 bpm Baby A accelerations: 15 X 15 Baby A decelerations: late (recurrent, resolve off pit) Baby A FHR category: category 2 Result Findings/Data: Laboratory Tests: 11/24 11/23 11/23 11/23 11/23 0009 2035 1803 1404 1000 Chemistry POC Glucose (65 - 110 mg/dL) 109 106 94 77 86 11/23 11/23 0550 0524 Chemistry POC Glucose (65 - 110 mg/dL) 71 Hematology WBC (6.5 - 12.3 K/mm3) 10.1 RBC (3.51 - 4.69 M/mm3) 3.66 Hgb (10.1 - 13.8 g/dL) 10.5 Hct (32.5 - 41.8 %) 31.3 L MCV (84.6 - 96.6 fL) 85.5 MCH (27.3 - 33.9 pg) 28.7 MCHC (32.0 - 34.2 gm/dL) 33.5 RDW (12.2 - 16.3 %) 13.2 Plt Count (134 - 363 K/mm3) 234 MPV (9.2 - 12.7 fL) 10.2 Neut % (Auto) (57.9 - 77.3 %) 62.0 Lymph % (Auto) (14.5 - 29.7 %) 30.6 H [place] % (Auto) (3.6 - 10.2 %) 6.3 Eos % (Auto) (0.0 - 3.0 %) 0.7 Baso % (Auto) (0.1 - 0.9 %) 0.2 Neut # (Auto) (K/mm3) 6.2 Lymph # (Auto) (K/mm3) 3.1 [place] # (Auto) (K/mm3) 0.6 Eos # (Auto) (K/mm3) 0.07 Baso # (Auto) (K/mm3) 0.0 Serology Treponema pallidum Ab (NONREACTIVE) NONREACTIVE Hep Bs Antigen (NONREACTIVE) NONREACTIVE Hepatitis C Antibody (NONREACTIVE) NONREACTIVE Hep C Ab Signal/Cutoff (<0.80) 0.13 HIV 1 2 Antibody (NONREACTIVE) NONREACTIVE Diagnosis, Assessment Plan Problem List/A P: 1. Gestational diabetes Assessment: normal FHR pattern Plan: s/p cytotec x 3, cook balloon removed. Fetus not tolerating induction with pitocin, no cervical change. GBS positive. epidural working well. FHTs overall reassuring off pitocin. GDM: BGs well controlled. Discussed that labor is not progressing, and will not unless her contractions are stronger. However, even inadequate contractions are causing decelerations. Given that she is remote from delivery, I recommend proceeding with a delivery. All questions answered. She agrees to proceed. . at 0321 RPT #:[id number] END OF REPORT [facility] 2022-11-24 00:01:00 [facility]) OB Intrapart Prog Note REPORT#:[id number] REPORT STATUS: Signed DATE:11/24/22 TIME: 0001 PATIENT: OXANA LARSON UNIT #: [id number] [facility] AGE: 26 SEX: F ATTEND: Carrillo Ware MD ADM AUTHOR: Carrillo Ware MD * ALL edits or amendments must be made on the electronic/computer document * Subjective Subjective Comments: feeling much better with epidural. Objective Nursing Documentation Review Nursing data: The data set between the solid lines has been imported from nursing documentation. Any exceptions have been noted below under Provider comments. __ ROM date: ROM time: __ Provider comments on imported nursing data: [] General VS: Last Documented: Result Date Time B/P Mean 84.0 11/23 2253 B/P 119/58 11/23 2253 Pulse 55 11/23 2253 Temp 97.5 11/23 2244 Resp 16 11/23 1758 Vital Signs Date Temp Pulse Resp B/P B/P Mean Pulse Ox FiO2 11/23 97.5-98.6 50-79 16-17 92-133/49-64 67.0-87.0 PATIENT WEIGHT: Weight (lb): 252 Weight (oz): Weight (kg): 114.500 Objective Cervical/ exam: Dilatation (cm): 2/50/-5 vtx confirmed with u/s Suspected >/= 4500 grams No Uterine activity: Monitor: toco FHR Evaluation Baby A: Baby A baseline: 155 bpm Baby A variability: moderate 6-25 bpm Baby A accelerations: 15 X 15 Baby A decelerations: none (few resolved with position chg), late Baby A FHR category: category 2 Result Findings/Data: Laboratory Tests: 11/23 11/23 11/23 11/23 11/23 2035 1803 1404 1000 0550 Chemistry POC Glucose (65 - 110 mg/dL) 106 94 77 86 71 11/23 0524 Hematology WBC (6.5 - 12.3 K/mm3) 10.1 RBC (3.51 - 4.69 M/mm3) 3.66 Hgb (10.1 - 13.8 g/dL) 10.5 Hct (32.5 - 41.8 %) 31.3 L MCV (84.6 - 96.6 fL) 85.5 MCH (27.3 - 33.9 pg) 28.7 MCHC (32.0 - 34.2 gm/dL) 33.5 RDW (12.2 - 16.3 %) 13.2 Plt Count (134 - 363 K/mm3) 234 MPV (9.2 - 12.7 fL) 10.2 Neut % (Auto) (57.9 - 77.3 %) 62.0 Lymph % (Auto) (14.5 - 29.7 %) 30.6 H [place] % (Auto) (3.6 - 10.2 %) 6.3 Eos % (Auto) (0.0 - 3.0 %) 0.7 Baso % (Auto) (0.1 - 0.9 %) 0.2 Neut # (Auto) (K/mm3) 6.2 Lymph # (Auto) (K/mm3) 3.1 [place] # (Auto) (K/mm3) 0.6 Eos # (Auto) (K/mm3) 0.07 Baso # (Auto) (K/mm3) 0.0 Serology Treponema pallidum Ab (NONREACTIVE) NONREACTIVE Hep Bs Antigen (NONREACTIVE) NONREACTIVE Hepatitis C Antibody (NONREACTIVE) NONREACTIVE Hep C Ab Signal/Cutoff (<0.80) 0.13 HIV 1 2 Antibody (NONREACTIVE) NONREACTIVE Diagnosis, Assessment Plan Problem List/A P: 1. Gestational diabetes Assessment: normal FHR pattern Plan: s/p cytotec x 3, cook balloon removed. GBS positive - will start PCN now. epidural working well. FHTs overall reassuring. GDM: BGs well controlled, will give half her lantus bedtime dose (10 units from home 18 units). . at 0013 RPT #:[id number] [facility] 16:13:00 [facility] ([facility]) OB Intrapart Prog Note REPORT#:[id number] REPORT STATUS: Signed DATE:11/23/22 TIME: 1613 PATIENT: OXANA LARSON UNIT #: [id number] ROOM[facility]BED: [facility] : 94 AGE: 26 SEX: F ATTEND: Carrillo Ware MD ADM AUTHOR: Carrillo Ware MD * ALL edits or amendments must be made on the electronic/computer document * Subjective Subjective Comments: having significant cramping. balloon in place Objective Nursing Documentation Review Nursing data: The data set between the solid lines has been imported from nursing documentation. Any exceptions have been noted below under Provider comments. __ ROM date: ROM time: __ Provider comments on imported nursing data: [] General VS: Last Documented: Result Date Time B/P Mean 79.0 11/23 1533 B/P 110/58 11/23 1533 Pulse 53 11/23 1533 Temp 98.1 11/23 1532 Resp 16 11/23 1532 Vital Signs Date Temp Pulse Resp B/P B/P Mean Pulse Ox FiO2 11/23 97.5-98.1 50-79 16-17 92-115/49-64 67.0-83.0 PATIENT WEIGHT: Weight (lb): 252 Weight (oz): Weight (kg): 114.500 Objective Cervical/ exam: Dilatation (cm): 0.5/thick/high Suspected >/= 4500 grams No Uterine activity: Monitor: toco FHR Evaluation Baby A: Baby A baseline: 140 bpm Baby A variability: moderate 6-25 bpm Baby A accelerations: 15 X 15 Baby A decelerations: none Baby A FHR category: category 1 Result Findings/Data: Laboratory Tests: 11/23 11/23 11/23 11/23 1404 1000 0550 0524 Chemistry POC Glucose (65 - 110 mg/dL) 77 86 71 Hematology WBC (6.5 - 12.3 K/mm3) 10.1 RBC (3.51 - 4.69 M/mm3) 3.66 Hgb (10.1 - 13.8 g/dL) 10.5 Hct (32.5 - 41.8 %) 31.3 L MCV (84.6 - 96.6 fL) 85.5 MCH (27.3 - 33.9 pg) 28.7 MCHC (32.0 - 34.2 gm/dL) 33.5 RDW (12.2 - 16.3 %) 13.2 Plt Count (134 - 363 K/mm3) 234 MPV (9.2 - 12.7 fL) 10.2 Neut % (Auto) (57.9 - 77.3 %) 62.0 Lymph % (Auto) (14.5 - 29.7 %) 30.6 H [place] % (Auto) (3.6 - 10.2 %) 6.3 Eos % (Auto) (0.0 - 3.0 %) 0.7 Baso % (Auto) (0.1 - 0.9 %) 0.2 Neut # (Auto) (K/mm3) 6.2 Lymph # (Auto) (K/mm3) 3.1 [place] # (Auto) (K/mm3) 0.6 Eos # (Auto) (K/mm3) 0.07 Baso # (Auto) (K/mm3) 0.0 Serology Treponema pallidum Ab (NONREACTIVE) NONREACTIVE Hep Bs Antigen (NONREACTIVE) NONREACTIVE Hepatitis C Antibody (NONREACTIVE) NONREACTIVE Hep C Ab Signal/Cutoff (<0.80) 0.13 HIV 1 2 Antibody (NONREACTIVE) NONREACTIVE Diagnosis, Assessment Plan Problem List/A P: 1. Gestational diabetes Assessment: normal FHR pattern Plan: continue with cytotec x 3, cook balloon placed 09. GBS positive - will start PCN with pitocin. epidural prn. FHTs reassuring. GDM: BGs well controlled. at 1616 RPT #:[id number] [facility] 20[facility] 10:13:00 [facility] ([facility]) OB Admission / H P REPORT#:[id number] REPORT STATUS: Signed DATE:11/23/22 TIME: 1013 PATIENT: OXANA LARSON UNIT #: [id number] ROOM/BED: [address] : 94 AGE: 26 SEX: F ATTEND: Carrillo Ware MD ADM AUTHOR: Carrillo Ware MD * ALL edits or amendments must be made on the electronic/computer document * OB History Nursing Documentation Review Nursing data: The data set between the solid lines has been imported from nursing documentation. Any exceptions have been noted below under Provider comments. Current data Steroids prior to arrival: ROM date: ROM time: EDC date: 12/10/22 Gestational age (labor triage): Post hemorrhage risk score: LowRisk Prior history : 2 Para: 0 Term: : Abortions spontaneous: Abortions induced: Living children: Ectopic: Stillbirths: Live births: deaths: Number of previous C/S: Reported maternal labs/data Blood type: Rh type: Negative Rubella: Hepatitis B: HIV exposure test: Negative VDRL: Group B beta strep: Done, result unknown Rho(D) immune globulin this preg: Monitor mode - UA: Feeding preference: Provider comments on imported nursing data: [] Chief complaint: scheduled induction HPI: 26y at 37.4 wks, here for IOL due to GDM. She has been managed with metformin ER 500mg QHS, lantus 18 units QHS. starting BMI 44. RH neg- rhogam given 09/22/2022. h/o laparoscopic gastric sleeve. efw 5lb 7 oz 11/18/2022 9%ile. h/o bleeding at 30 wks, resolved- BMZ gibven 10/01-10/02/2022. GBS positive. Mom or sister for support.It's a boy!!Hgb/Hct/Plt: 12.3 / 37.8 / 290Type/ RH: O negativeIDC: positive- (anti D, received rhogam at the ED)Rubella: immuneHIV: negativeHBsAg: negativeRPR: negativeUrine culture/analysis: negPap: 03/2020 NILGC/CT: neg / negMS AFP: declinedNIPT: neg mCarrier screen: declinedZika/Dengue: 04/23/2022natomy u/s:MFM 15w normal anatomy w/ suboptimal view of the heart. Post placenta07/20/2022 MFM 19w normal anatomy, anterior placenta?DM screen early: fastings in the 100s, will start treatment.Rhogam: done rd trimester Hgb/Hct/Plt:3rd trimester RPR:3rd trimester HIV:GBS: positive NKDA Home meds: metforminER 500mg qhs; lantus 18 units qhs, PNV PMH: PCOS, h/o pre-DM, chlamydia 2018. 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 history: : 2 Abortus: 1 Current : Best EDC: 12/10/22 Admission EGA (weeks) 37 Admission EGA (days) 4 Past History Smoking status for patients 13 years old or older: Never Smoker Allergies: Coded Allergies: No Known Allergies (10/01/22) Review of Systems : Reports: . Objective General VS: Last Documented: Result Date Time B/P Mean 76.0 11/23 0826 B/P 103/64 11/23 08 Pulse 55 11/23 08 Temp 97.5 11/23 07 Resp 16 11/23 726 Vital Signs Date Temp Pulse Resp B/P B/P Mean Pulse Ox FiO2 11/23 97.5 53-79 16 100-105/49-64 68.0-78.0 PATIENT WEIGHT: Weight (lb): 252 Weight (oz): Weight (kg): 114.500 Physical Exam Neuro: Exam: alert, oriented x3, normal speech Abdomen: gravid, soft, no abnormal tenderness, no guarding, no rebound tenderness Uterine activity: Monitor: toco Pelvic exam: Pelvis clinically adequate: yes Cervical/ exam: Dilatation (cm): 0.5/thick/high Suspected macrosomia: No Suspected >/= 4500 grams No Membranes: Membranes: Intact Lower extremities: Edema: trace Baby A: Baby A baseline: 130 bpm Baby A variability: moderate 6-25 bpm Baby A accelerations: 15 X 15 Baby A decelerations: none Baby A FHR category: category 1 Results Findings/Data: Laboratory Tests: 11/23 11/23 11/23 1000 0550 0524 Chemistry POC Glucose (65 - 110 mg/dL) 86 71 Hematology WBC (6.5 - 12.3 K/mm3) 10.1 RBC (3.51 - 4.69 M/mm3) 3.66 Hgb (10.1 - 13.8 g/dL) 10.5 Hct (32.5 - 41.8 %) 31.3 L MCV (84.6 - 96.6 fL) 85.5 MCH (27.3 - 33.9 pg) 28.7 MCHC (32.0 - 34.2 gm/dL) 33.5 RDW (12.2 - 16.3 %) 13.2 Plt Count (134 - 363 K/mm3) 234 MPV (9.2 - 12.7 fL) 10.2 Neut % (Auto) (57.9 - 77.3 %) 62.0 Lymph % (Auto) (14.5 - 29.7 %) 30.6 H [place] % (Auto) (3.6 - 10.2 %) 6.3 Eos % (Auto) (0.0 - 3.0 %) 0.7 Baso % (Auto) (0.1 - 0.9 %) 0.2 Neut # (Auto) (K/mm3) 6.2 Lymph # (Auto) (K/mm3) 3.1 [place] # (Auto) (K/mm3) 0.6 Eos # (Auto) (K/mm3) 0.07 Baso # (Auto) (K/mm3) 0.0 Serology Treponema pallidum Ab (NONREACTIVE) NONREACTIVE Hep Bs Antigen (NONREACTIVE) NONREACTIVE Hepatitis C Antibody (NONREACTIVE) NONREACTIVE Hep C Ab Signal/Cutoff (<0.80) 0.13 HIV 1 2 Antibody (NONREACTIVE) NONREACTIVE Diagnosis, Assessment Plan Diagnosis, Assessment Plan Problem List/A P: 1. Gestational diabetes Assessment/Impression: normal FHR pattern, GDM Plan: Admit for IOL. cytotec x 3, cook balloon 80/80 placed at 0930. FHTs reassuring. GBS positive- will start PCN with pitocin. epidural prn. BGs stable- continue to monitor. at [address] [place] [address] #:[id number] [facility] 2022-[facility] 23:00:00 [id number] [facility] [place] [id number] PATIENT NAME: OXANA LARSON ADMIT DATE: 11/09/22 ACCOUNT NO: [id number] ROOM NO: AGE: 26 SEX: F ADMITTING PHYSICIAN: ATTENDING PHYSICIAN: Carrillo Ware MD ADMISSION DATE: 11/09/2022 20:19:00 This is triage evaluation on Oxana Larson for evaluation in OB ED on 11/09/2022 by Malini Alejo MD, triage hospitalist, seen per request of Dr. Barker, process controls technician for Dr. Daniel Worley. HISTORY OF PRESENT ILLNESS: The patient is a 26-year-old G2, P0-0-1-0, with last menstrual period in 02/2022 and estimated date of confinement 12/10/2022. She presented at 35-4/7 weeks complaining of decreased movements since the morning. She felt she had been eating and drinking appropriately. By the time of evaluation, she had begun to feel movements again. She denied vaginal bleeding or leakage of fluid. She reported occasional contractions about once every other hour at the level 6/10 on the pain. She denied headache, vision changes, or other symptoms of preeclampsia. She denied fever, chills, diarrhea, constipation, or dysuria. She reports nausea with 1 episode of vomiting recently. She denies cough, sore throat, loss of taste and smell, or other symptoms of COVID. She was previously diagnosed with COVID in 11/2019. She has received 2 doses of Pfizer vaccine. Her care began with Dr. Daniel Worley at approximately 5 weeks gestation. The is notable for vaginal bleeding in the first trimester. She received RhoGAM at that time. She also had bleeding at approximately 30 weeks and had another dose of RhoGAM at 28 weeks. She was diagnosed with gestational diabetes and is followed by Dr. Riggs. The diabetes is well controlled on metformin and Lantus at bedtime. Her next visit with both Dr. Daniel Worley and Dr. Riggs on 11/10/2022. PAST MEDICAL HISTORY: Negative. PAST SURGICAL HISTORY: Gastric sleeve in 10/2021 with an 80-pound weight loss. She states she has kept most of the weight off with minimal gain during the as well. Other surgeries include wisdom teeth in 2017. ALLERGIES: NO KNOWN DRUG ALLERGIES. MEDICATIONS: vitamins, baby aspirin daily, iron once a day, also vitamin B12, vitamin A, and calcium. She takes metformin 500 at bedtime and Lantus 18 units at bedtime. OBSTETRICAL HISTORY: In 2019, first trimester spontaneous , not requiring D and C. GYNECOLOGIC HISTORY: With monthly cycles, all Pap smears normal, no history of STDs. PATIENT NAME: OXANA LARSON SOCIAL HISTORY: The patient denies tobacco or illicit drug use and reports occasional prepregnancy alcohol use. She lives with her parents and her sister. She is no longer involved with the father of the , he is a 27-year-old healthy male. 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 She does not lift the children and denies chemical exposures at work. FAMILY HISTORY: Father with diabetes and high blood pressure. Maternal grandmother with diabetes and high blood pressure. Her other 3 grandparents with diabetes, otherwise noncontributory. REVIEW OF SYSTEMS: 10-point review of systems negative except as stated above. PHYSICAL EXAMINATION: GENERAL: The patient is a morbidly obese female, in no acute distress, lying on triage stretcher in OB ED. VITAL SIGNS: Height 5 feet 3 inches, weight prior to the 250 pounds and current weight 254 pounds. Blood pressure 112/64, pulse 70, respirations 18, and temperature 98.7. HEAD AND NECK: Within normal limits, without lymphadenopathy or thyromegaly. CHEST: With unlabored breathing. HEART: Regular rate and rhythm. BREASTS: Deferred. ABDOMEN: Soft, nontender, gravid. PELVIC: Deferred. EXTREMITIES: Without edema. Bilateral patellar reflexes 2+. NEUROLOGIC: Nonfocal. The patient is awake, alert, and oriented x3. NST is category 1 for gestational age with baseline heart tones in the 120s, multiple 15 x 15 accelerations, no decelerations, and no contraction seen. She has marked multiple movements since arrival and states she is now feeling frequent movements. Fingerstick blood glucose level 72. BPP with single intrauterine . Posterior placenta grade 2 without previa. DEEPAK of 20.2. heart rate 140 beats per minute. Cervix is 3.5 cm in length and appears closed. BPP score 8/8. ASSESSMENT AND PLAN: This is a 26-year-old G2, P0-0-1-0 at 35-4/7 weeks, who presented with decreased movements. She is now feeling frequent movements. The is notable for gestational diabetes, which has been well controlled with oral medications and insulin. The patient is discharged home in improved condition with reassuring status. She is to follow up as scheduled with both Dr. Daniel Worley and Dr. Riggs on 11/10/2022 or earlier for vaginal bleeding, leakage of fluid, decreased movement, contractions with increased force and frequency, or other concerns. She is to drink greater than 100 ounces of water daily and eat frequent small meals on the ADA diet schedule with 3 meals 3 snacks. She is to begin kick counts nightly until delivery and call for less than 10 kicks in 2 hours. All instructions given verbally by and questions answered. Dictated By: Malini Alejo MD Date Dictated: 11/10/2022 23:00:15 Date Transcribed: 11/11/2022 00:32:44 DSD/RAG PATIENT NAME: OXANA LARSON Receipt ID: [id number] Authenticated and Edited by Malini Alejo MD On 11/22/22 7:07:16 AM at 0709 PATIENT NAME: OXANA LARSON [facility] 2022-10-03 15:07:00 [facility] ([facility]) OB Antepartum Prog Note REPORT#:[id number] REPORT STATUS: Signed DATE:10/03/22 TIME: 1507 PATIENT: OXANA LARSON UNIT #: [id number] ROOM[facility]BED: [facility]-A : 94 AGE: 26 SEX: F ATTEND: Carrillo Ware MD ADM AUTHOR: Hue Nelson MD * ALL edits or amendments must be made on the electronic/computer document * Subjective Subjective Comments: Pt doing well without complaints. No ctx/lof/vb. Good FM. She has seen a small amount of brown discharge but nothing bright red or with clots. Nervous to go home because she lives so far away. Review of Systems All systems rev neg: except as marked Objective Nursing Documentation Review Nursing data: The data set between the solid lines has been imported from nursing documentation. Any exceptions have been noted below under Provider comments. ROM date: ROM time: Labor onset date: Labor onset time: Provider comments on imported nursing data: [] VS: Last Documented: Result Date Time B/P Mean 75.0 10/03 910 Pulse Ox 99 10/03 910 B/P 109/58 10/03 09 Temp 98.4 10/03 0911 Pulse 65 10/03 0911 Resp 16 10/03 09 Vital Signs Date Temp Pulse Resp B/P B/P Mean Pulse Ox FiO2 10/02-10/03 98.4 65-84 16 109-120/56-58 75.0-81.0 97-99 PATIENT WEIGHT: Weight (lb): 250 Weight (oz): Weight (kg): 113.600 Membranes: Intact Uterine activity: Monitor: toco Frequency (description): none Procedures: non stress test Neuro: Exam: alert, oriented x3, normal speech Abdomen: gravid, soft, no guarding, no rebound tenderness Lower extremities: Edema: none Baby A: Baby A baseline: 130 bpm Baby A variability: moderate 6-25 bpm Baby A accelerations: 15 X 15 Baby A decelerations: none Baby A FHR category: category 1 Baby A notes: > 20 minutes reviewed Findings/data: Laboratory Tests: 10/03 10/03 10/02 1428 0654 1919 Chemistry POC Glucose (65 - 110 mg/dL) 123 H 101 141 H Diagnosis, Assessment Plan Diagnosis, Assessment Plan Free text A P: Pt is a 26 yo at 30w2d with A2GDM here for vaginal bleeding - SIUP at 30 weeks: FHTs Cat I. S/p BMZ. - Pt AFVSS; No further bleeding - GDM: mildly elevated due to BMZ; continue meds and diet - Dispo: given stability, ok for outpatient management. Precautions reviewed. at 1512 RPT #:[id number] END OF REPORT [facility] 2022-10-02 08:49:00 [facility] ([facility]) OB Antepartum Prog Note REPORT#:[id number] REPORT STATUS: Signed DATE:10/02/22 TIME: 0849 PATIENT: OXANA LARSON UNIT #: [id number] ROOM/BED: [address] : 94 AGE: 26 SEX: F ATTEND: Carrillo Ware MD ADM AUTHOR: Mora Rueda MD * ALL edits or amendments must be made on the electronic/computer document * Subjective Subjective Patient reports: Comments: Feels well this morning. No bleeding overnight. Had one episode of mild cramping for about 10 minutes that self-resolved. Objective Nursing Documentation Review Nursing data: The data set between the solid lines has been imported from nursing documentation. Any exceptions have been noted below under Provider comments. ROM date: ROM time: Labor onset date: Labor onset time: Provider comments on imported nursing data: [] VS: Last Documented: Result Date Time B/P Mean 79.0 10/01 1948 Pulse Ox 97 10/01 1948 B/P 108/56 10/01 194 Pulse 70 10/01 1948 Resp 18 10/01 1104 Temp 98.4 10/01 0616 Vital Signs Date Temp Pulse Resp B/P B/P Mean Pulse Ox FiO2 10/01 69-70 18 108-117/56-62 79.0-84.0 97 PATIENT WEIGHT: Weight (lb): 250 Weight (oz): Weight (kg): 113.600 Membranes: Intact Uterine activity: Monitor: toco Frequency (description): none Procedures: non stress test Neuro: Exam: alert, oriented x3, normal speech Abdomen: gravid, soft, no guarding, no rebound tenderness Lower extremities: Edema: none Baby A: Baby A baseline: 135 bpm Baby A variability: moderate 6-25 bpm Baby A accelerations: 15 X 15 Baby A decelerations: none Baby A FHR category: category 1 Baby A notes: > 20 minutes reviewed by Mohit on 10/02/22 Diagnosis, Assessment Plan Diagnosis, Assessment Plan Free Text A P: 26y at 30.1 wks, a/f vaginal bleeding. *No sign of source of bleeding, would be concerned for marginal abruption, but without signs of further bleeding or distress, no need for intervention. If no further bleeding, plan discharge to home 10/03/2022 (appt with Dr. Riggs 10/05). If bleeding resumes- start magnesium, place on continuous monitoring, and have Dr. Riggs examine 10/04. *Pt aware of possible need for c/s for distress. *BMZ started 10/01, next dose today. *GDM: BG 93-153 over last 24h. Continue metformin, lantus 20 units, sliding scale lispro with meals due to BMZ. *SCDs *rhogam 09/22/2022. *Partner not involved- mom or sister will be her support. at 0853 RPT #:[id number] END OF REPORT [facility] 2022-10-01 17:11:00 [facility] ([facility]) OB Admission / H P REPORT#:[id number] REPORT STATUS: Signed DATE:10/01/22 TIME: 171 PATIENT: OXANA LARSON UNIT #: [id number] ROOM/BED: [address] : 94 AGE: 26 SEX: F ATTEND: Carrillo Ware MD ADM AUTHOR: Carrillo Ware MD * ALL edits or amendments must be made on the electronic/computer document * OB History Nursing Documentation Review Nursing data: The data set between the solid lines has been imported from nursing documentation. Any exceptions have been noted below under Provider comments. Current data Steroids prior to arrival: ROM date: ROM time: EDC date: 12/10/22 Gestational age (labor triage): Post hemorrhage risk score: Low Risk for Hemorrhage. Prior history : 2 Para: 0 Term: : Abortions spontaneous: Abortions induced: Living children: Ectopic: Stillbirths: Live births: deaths: Number of previous C/S: Reported maternal labs/data Blood type: Rh type: Negative Rubella: Hepatitis B: HIV exposure test: Negative VDRL: Group B beta strep: Done, result unknown Rho(D) immune globulin this preg: Monitor mode - UA: Feeding preference: Provider comments on imported nursing data: [] Chief complaint: vaginal bleeding HPI: 26y at 30.0 wks, here for vaginal bleeding this AM. She noticed it starting at 4AM, and had a telida size clot on exam in the [facility]. Cervix appeared closed, long. KB neg (RHogam 09/22/2022), still with Anti-D. U/s with BPP /8; NST reactive. Placenta normal on u/s, no retroplacental clot; posterior, not low lying. Following with Dr. Riggs this . 27wk u/s efw 17%ile. anemia on PO iron. BMI 44 on aspirin 81mg daily. GDM- metformin 500mg ER QHS, lantus 18 units qhs. NKDA Home meds: aspirin 81mg daily; lantus 18units qhs, metformin 500mg ER qhs, PNV PMH: PCOS, morbid obesity, pre-DM 2017 (early GDM diagnosed this ) PSH: laparoscopic gastric sleeve Family Hx: DM, HTN SOcial Hx: not . 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 no tobacco, occasional etoh, no illicits. Mom or sister for support.It's a boy!!Hgb/Hct/Plt: 12.3 / 37.8 / 290Type/ RH: O negativeIDC: positive- (anti D, received rhogam at the ED)Rubella: immuneHIV: negativeHBsAg: negativeRPR: negativeUrine culture/analysis: negPap: 03/2020 NILGC/CT: neg / negMS AFP: declinedNIPT: neg mCarrier screen: declinedZika/Dengue: 04/23/2022natomy u/s:MFM 15w normal anatomy w/ suboptimal view of the heart. Post placenta07/20/2022 MFM 19w normal anatomy, anterior placenta?DM screen early: fastings in the 100s, will start treatment.Rhogam: done 09/22/2022 history: : 2 Abortus: 1 Current : Best EDC: 12/10/22 Past History Smoking status for patients 13 years old or older: Never Smoker Allergies: Coded Allergies: No Known Allergies (10/01/22) Review of Systems : Reports: , vaginal bleeding. Denies: pelvic pain. All systems rev neg: except as marked Objective General VS: Last Documented: Result Date Time B/P Mean 84.0 10/01 1104 B/P 117/62 10/01 1104 Pulse 69 10/01 1104 Resp 18 10/01 1104 Temp 98.4 10/01 0616 Vital Signs Date Temp Pulse Resp B/P B/P Mean Pulse Ox FiO2 10/01 98.4 69-83 18 104-117/55-62 76.0-84.0 PATIENT WEIGHT: Weight (lb): 250 Weight (oz): Weight (kg): 113.600 Physical Exam Neuro: Exam: alert, oriented x3, normal speech Abdomen: gravid, soft, no guarding, no rebound tenderness, uterus mildly tender to palpation Uterine activity: Monitor: toco Frequency (description): none Membranes: Membranes: Intact Lower extremities: Edema: none Baby A: Baby A baseline: 130 bpm Baby A variability: moderate 6-25 bpm Baby A accelerations: 15 X 15 Baby A decelerations: none Baby A FHR category: category 1 Baby A notes: > 20 minutes reviewed. Results Findings/Data: Laboratory Tests: 10/01 10/01 10/01 1237 0841 0700 Chemistry Sodium (135 - 145 mEq/L) 138 Potassium (3.5 - 5.0 mEq/L) 4.4 Chloride (100 - 115 mEq/L) 102 Carbon Dioxide (22 - 31 mEq/L) 27 Anion Gap (10 - 20) 13.40 BUN (7 - 18 mg/dL) 4 L Creatinine (0.5 - 1.0 mg/dL) 0.5 Glomerular Filtr Rate (>60 ml/min) 132 Glucose (65 - 110 mg/dL) 79 POC Glucose (65 - 110 mg/dL) 145 H Calcium (8.4 - 10.2 mg/dL) 9.0 Total Bilirubin (0.2 - 1.0 mg/dL) 0.4 AST (15 - 37 units/L) 8 L ALT (12 - 78 units/L) 12 Total Alk Phosphatase (46 - 116 units/L) 62 Total Protein (6.3 - 8.2 gm/dL) 6.4 Albumin (3.4 - 4.8 gm/dL) 2.9 L Hematology WBC (6.5 - 12.3 K/mm3) 10.8 RBC (3.51 - 4.69 M/mm3) 3.77 Hgb (10.1 - 13.8 g/dL) 11.1 Hct (32.5 - 41.8 %) 32.8 MCV (84.6 - 96.6 fL) 87.0 MCH (27.3 - 33.9 pg) 29.4 MCHC (32.0 - 34.2 gm/dL) 33.8 RDW (12.2 - 16.3 %) 13.3 Plt Count (134 - 363 K/mm3) 233 MPV (9.2 - 12.7 fL) 9.7 Neut % (Auto) (57.9 - 77.3 %) 73.5 Lymph % (Auto) (14.5 - 29.7 %) 20.7 [place] % (Auto) (3.6 - 10.2 %) 5.0 Eos % (Auto) (0.0 - 3.0 %) 0.3 Baso % (Auto) (0.1 - 0.9 %) 0.2 Neut # (Auto) (K/mm3) 7.9 Lymph # (Auto) (K/mm3) 2.2 [place] # (Auto) (K/mm3) 0.5 Eos # (Auto) (K/mm3) 0.03 Baso # (Auto) (K/mm3) 0.0 Serology Treponema pallidum Ab (NONREACTIVE) NONREACTIVE Hep Bs Antigen (NONREACTIVE) NONREACTIVE Hepatitis C Antibody (NONREACTIVE) NONREACTIVE Hep C Ab Signal/Cutoff (<0.80) 0.09 HIV 1 2 Antibody (NONREACTIVE) NONREACTIVE Urines Urine Color (YELLOW) STRAW Urine Appearance (CLEAR) CLEAR Urine pH (5 - 9) 7.0 Ur Specific [place] (1.001 - 1.035) 1.004 Urine Protein (NEG) NEGATIVE Urine Glucose (UA) (NEG) NEGATIVE Urine Ketones (NEG) NEGATIVE Urine Blood (NEG) 2+ H Urine Nitrite (NEG) NEG Urine Bilirubin (NEG) NEGATIVE Urine Urobilinogen (NEG mg/dL) NEGATIVE Ur Leukocyte Esterase (NEG) NEG Urine RBC (NONE SEEN #/hpf) 3-5 H Urine WBC (NONE SEEN #/hpf) 0-2 Ur Epithelial Cells (RARE - FEW #/HPF) RARE Urine Bacteria (RARE - FEW /HPF) RARE Microbiology: Date/Time Procedure - Status Source Growth 10/01 0833 Streptococcus Culture - RECD GEN OTHER Recent Impressions: ULTRASOUND - US FET BIO PH MN W/O NST 10/01 1010 Report Impression - Status: SIGNED Entered: 10/01/2022 1116 Impression: Live intrauterine gestation. PROCEDURE INFORMATION: Exam: US Biophysical Profile Without Non-Stress Test Exam date and time: 10/01/2022 9:54 AM Age: 26 years old Clinical indication: Condition or disease; Other: Vaginal bleeding 30 wks; Lmp or gestational age (weeks): 30wks; 2nd ; ; Additional info: 30.0 weeks, vaginal bleeding TECHNIQUE: Imaging protocol: US biophysical profile without non-stress testing. COMPARISON: No relevant prior studies available. FINDINGS: BIOPHYSICAL PROFILE: breathing movement (BPP): 2 out of 2. body movement (BPP): 2 out of 2. tone (BPP): 2 out of 2. Amniotic fluid (BPP): 2 out of 2. IMPRESSION: Biophysical profile score is 8 out of 8. Impression By: [email or web address] - Garland Perez MD Diagnosis, Assessment Plan Diagnosis, Assessment Plan Free Text A P: 26y at 30.0 wks, here for vaginal bleeding, no longer bleeding since this AM. *No sign of source of bleeding, would be concerned for marginal abruption, but without signs of further bleeding or distress, no need for intervention. Recommend light activity only. Monitor bleeding- if no further bleeding, plan discharge to home 10/03/2022 (appt with Dr. Riggs 10/05). If bleeding resumes- would start magnesium, place on continuous monitoring, and have Dr. Riggs examine 10/04. *Discussed need for c/s for distress. *BMZ started 10/01 *GDM: continue metformin, will increase lantus from 18 units to 20 units, also add sliding scale lispro with meals due to BMZ. *SCDs *rhogam 09/22/2022. *Partner not involved- mom or sister will be her support. at 1728 RPT #:[id number] END OF REPORT [facility] 2022-10-01 08:39:00 [facility] ([facility]) Clinical Note REPORT#:[id number] REPORT STATUS: Signed DATE:10/01/22 TIME: 08 PATIENT: OXANA LARSON UNIT #: [id number] ROOM/BED: [facility] : 94 AGE: 26 SEX: F ATTEND: Carrillo Ware MD ADM AUTHOR: Malini Alejo MD * ALL edits or amendments must be made on the electronic/computer document * Clinical Note Note: This is triage evaluation dictated on patient Oxana Larson on 10/01/2022 by Malini Alejo MD triage hospitalist seen per request of Dr. Daniel Worley. Patient is a 26-year-old -0-1-0, with last menstrual period in February 2022 , and estimated date of confinement 12/10/2022. She presented at 30-0/7 weeks complaining of vaginal bleeding when she was up to void about 4 AM. She denied low-lying placenta or placenta previa. She denied abdominal trauma or she denied recent intercourse. She states she had vaginal bleeding at approximately 12 weeks which resolved with conservative treatment. She is known to be Rh- and received RhoGAM at that time and the usual midtrimester RhoGAM was given on September 22. Patient denies leakage of fluid or contractions, and reports good movements. She denies headache, scotomata, or other symptoms of preeclampsia. She denies fever, chills, diarrhea, or dysuria. She reports chronic nausea without vomiting and chronic constipation. She denies cough, sore throat, loss of taste and smell, or other symptoms of COVID. She was previously diagnosed with COVID in November 2019, she has received 2 doses of Pfizer vaccine. Her care began with Dr. Daniel worley at approximately 5 weeks gestation, her next visit is scheduled for 10/06. In addition to first trimester bleeding she also reports diagnosis of gestational diabetes controlled with oral medications and insulin. Dr. Riggs ([facility]) manages her diabetes. Her next appointment with him as 10/05. She is morbidly obese, she did have a gastric sleeve placed in 2021 and lost 80 pounds at that time. Past medical history negative. Past surgical history wisdom teeth in 2015, and gastric sleeve in 2021 with loss as reported above. Allergies no known drug allergies. Medications vitamins, iron once daily, baby aspirin daily, metformin 500 at bedtime, Lantus 18 units at bedtime, also vitamins B12 and D, and calcium. Obstetrical history in 2019 first trimester spontaneous not requiring D C. 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 Social history patient denies tobacco or illicit drug use, and reports occasional prepregnancy alcohol use. She lives with her sister and parents. She is still involved with the father of the , he is a 27-year-old healthy male. Family history father with diabetes and hypertension, paternal grandmother with diabetes, maternal grandmother with diabetes and hypertension, maternal grandfather with diabetes, otherwise noncontributory. 10 point review of systems negative except as stated above. On physical exam patient is a morbidly obese female in no acute distress lying in triage stretcher in OB ED. Height 5 feet 3 inches, weight prior to the 245 pounds, and current weight 250 pounds. Blood pressure 104/56, pulse 71, respirations 18, and temperature 98.4. Head and neck exam within normal limits, without lymphadenopathy or thyromegaly. Chest with unlabored breathing, regular rate and rhythm. Breast exam deferred. Abdomen soft, nontender, gravid. Pelvis on sterile speculum exam dark clot the size of a telida noted in vagina. Cervix visualized with minimal dark blood from os, cervix appeared closed and thick. Extremities are without edema. Neuro exam is nonfocal, patient is awake, alert, and oriented x3. NST is category 1 for gestational age, with baseline heart tones in the 130s, multiple 15 x 15 accelerations, no decelerations, and no contractions seen. Urinalysis with 2+ blood otherwise negative with 3-5 RBCs, 0-2 WBCs, rare epithelial cells, and rare bacteria. White blood cell count 10.8, hemoglobin 11.1, hematocrit 32.8, and platelets 233 ,000. Sodium pending Hemoglobin A1c pending Blood type pending KB stain pending Serologies pending Ultrasound pending ASSESSMENT/PLAN: 26-year-old -0-1-0 at 30-0/7 weeks, A2 gestational diabetic, Rh- status post RhoGAM 9 days ago, now presents with new episode of vaginal bleeding. I spoke to Dr. Daniel Worley, she requested the patient be admitted to antepartum unit for observation and she will see her later today. Will give first dose of betamethasone, no magnesium at this time. Will continue ADA diet with usual Lantus and metformin. Will monitor glucose levels with sliding scale and supplement as needed. Will monitor for further vaginal bleeding, and give RhoGAM if indicated. Delivery for heavy bleeding consistent with abruption, nonreassuring maternal or status. Dr. Daniel Worley is now assuming care of the patient./dsd at 0954 RPT #:[id number] END OF REPORT [facility]"
[2024-03-15 01:19] LABS: PT Prothrombin Time 11.3 SECONDS (9.4-12.5); Protime INR 1.01
[2024-03-15 01:22] LABS: Absolute Basophils 0.1 K/uL (0-0.5); Absolute Eosinophils 0.1 K/uL (0-0.5); Absolute Monocytes 0.5 K/uL (0.1-1.3); Basophils % 0.7 % (0-1.3); Eosinophils % 0.6 % (0-4.4); Hematocrit 36.8 % (36.0-45.0); MCH 28.1 pg (27.0-35.0); MCHC 32.8 g/dL (32.0-36.0); MCV 85.8 fL (80-100); MPV 7.2 fL (7.6-11.3); Monocytes % 3.4 % (3.3-12.3); Neutrophils % 88.3 % (41.7-73.7); Platelets 307 thou/uL (152-406); RBC Red Blood Cell Count 4.29 M/uL (3.86-4.86); Red Cell Distribution Width 13.5 % (12.1-15.2)
[2024-03-15 01:32] LABS: Anion Gap 7.7 mEq/L (5.0-15.0); Potassium 3.7 mEq/L (3.5-5.1); Troponin High Sensitivity 3.1 pg/mL (<58.9)
[2024-03-15 02:08] LABS: Band Neutrophils 7 % (0-1); Blood Morphology Comment NOT SEEN (NOT SEEN); Differential Total Cells Count 100; Lymphocytes 7 % (15-42); Monocytes 3 % (0-10); Platelet Estimate ADEQ; Reactive Lymphocytes 1 %; Segmented Neutrophils 81 % (40-80)
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
--- NOTE | 2024-03-15 02:57 | ER ---
Nurse's Notes [facility] Name: Rosette Olson Age: 28 yrs Sex: Female : 1995 Arrival Date: 03/14/2024 Time: 23:17 Bed 25 Private MD: Diagnosis: Chest pain, unspecified Presentation: 03/14 23:46 Chief complaint: Patient states: I feel like I have something sitting on my chest and jb4 then there is a shooting pain to the middle of my back. Coronavirus screen: At this time, the client does not indicate any symptoms associated with coronavirus-19. Ebola Screen: No symptoms or risks identified at this time. Initial Sepsis Screen: Does the patient meet any 2 criteria? No. Patient's initial sepsis screen is negative. Does the patient have a suspected source of infection? No. Patient's initial sepsis screen is negative. Risk Assessment: Do you want to hurt yourself or someone else? Patient reports no desire to harm self or others. Onset of symptoms was March 14, 2024. Transition of care: patient was not received from another setting of care. 23:46 Method Of Arrival: Ambulatory jb4 23:46 Acuity: JOHNNY 2 jb4 Triage Assessment: 23:48 General: Appears in no apparent distress. comfortable, Behavior is calm, cooperative, jb4 appropriate for age. Pain: Complains of pain in mid-sternal area Pain radiates to thoracic area Pain currently is 10 out of 10 on a pain scale. Quality of pain is described as pressure, shooting. Neuro: Level of Consciousness is awake, alert, obeys commands, Oriented to person, place, time, situation. Cardiovascular: Patient's skin is warm and dry. Respiratory: Airway is patent Respiratory effort is even, unlabored, Respiratory pattern is regular, symmetrical. Derm: Skin is intact, Skin is pink, warm \T\ dry. Musculoskeletal: Circulation, motion, and sensation intact. Range of motion: intact in all extremities. Historical: - Allergies: 23:48 No Known Allergies; jb4 - PMHx: 23:48 None; jb4 - PSHx: 23:48 Gastric Bypass; ; jb4 - Immunization history:: Adult Immunizations up to date. - Infectious Disease History:: Denies. - Social history:: Smoking status: Patient denies any tobacco usage or history of. Screenin:49 [facility] ED Fall Risk Assessment (Adult) History of falling in the last 3 months, jb4 including since admission No falls in past 3 months (0 pts) Confusion or Disorientation No (0 pts) Intoxicated or Sedated No (0 pts) Impaired Gait No (0 pts) Mobility Assist Device Used No (0 pt) Altered Elimination No (0 pt) Score/Fall Risk Level 0 - 2 = Low Risk Oriented to surroundings, Maintained a safe environment. Abuse screen: Denies threats or abuse. Nutritional screening: No deficits noted. Tuberculosis screening: No symptoms or risk factors identified. Assessment: 03/15 01:03 Reassessment: Patient appears in no apparent distress at this time. Patient and/or jb4 family updated on plan of care and expected duration. Pain level reassessed. Patient is alert, oriented x 3, equal unlabored respirations, skin warm/dry/pink. 02:55 Reassessment: Patient appears in no apparent distress at this time. Patient and/or jb4 family updated on plan of care and expected duration. Pain level reassessed. Patient is alert, oriented x 3, equal unlabored respirations, skin warm/dry/pink. Vital Signs: 03/14 23:46 BP 117 / 62; Pulse 67; Resp 16; Pulse Ox 100% on R/A; Weight 111.13 kg (R); Height 5 jb4 ft. 3 in. ; Pain 02/22; 03/15 01:03 BP 111 / 65; Pulse 63; Resp 16; Pulse Ox 99% on R/A; jb4 02:55 BP 121 / 68; Pulse 60; Resp 16; Pulse Ox 96% on R/A; jb4 03/14 23:46 Body Mass Index 43.40 (111.13 kg, 160.02 cm) jb4 03/14 23:46 Pain Scale: Adult jb4 ED Course: 03/14 23:26 Patient arrived in ED. jj6 23:36 Francisco Flood MD is Attending Physician. bo1 23:44 Blake Anguiano, RN is Primary Nurse. jb4 23:48 Triage completed. jb4 23:48 Arm band placed on right wrist. jb4 23:49 Patient has correct armband on for positive identification. Bed in low position. Call jb4 light in reach. Side rails up X 1. Provided Education on: plan of care. Client placed on continuous cardiac and pulse oximetry monitoring. NIBP monitoring applied. 23:49 Patient maintains SpO2 saturation greater than 95% on room air. jb4 03/15 01:00 Basic Metabolic Panel Sent. jb4 01:00 CBC with Diff Sent. jb4 01:00 PT-INR Sent. jb4 01:00 Troponin HS Sent. jb4 01:00 Test, Serum Sent. jb4 01:00 Lipase Sent. jb4 01:14 XRAY Chest (1 view) In Process Unspecified. EDMS 03:25 No provider procedures requiring assistance completed. IV discontinued, intact, lg3 bleeding controlled, No redness/swelling at site. Pressure dressing applied. Administered Medications: 03:25 Drug: Ibuprofen PO 800 mg PO once Route: PO; lg3 03:25 Follow up: Response: No adverse reaction; Medication administered at discharge. lg3 Medication: 03:26 VIS not applicable for this client. lg3 Outcome: 02:57 Discharge ordered by . bo1 03:25 Discharged to home ambulatory, with family, lg3 03:25 Condition: stable 03:25 Discharge instructions given to patient, Instructed on discharge instructions, follow up and referral plans. Demonstrated understanding of instructions, follow-up care, 03:26 Patient left the ED. lg3 Signatures: Dispatcher [employer] EDMS Blake Anguiano RN RN jb4 Fadumo Terrell RN RN lg3 Daily Kemp6 Francisco Flood MD MD bo1
[2024-03-15] MEDS ORDERED: IBUPROFEN 400 MG TAB ONE (03:19)
[2024-03-15 03:32] VITALS: BP 121/68; O2SAT 96
--- NOTE | 2024-03-15 05:40 | RAD REPORT ---
EXAM: XR Chest, 1 View CLINICAL HISTORY: Chest pain. TECHNIQUE: Frontal view of the chest. COMPARISON: No relevant prior studies available. FINDINGS: Lungs: Unremarkable. No consolidation. Pleural space: Unremarkable. No pneumothorax. Heart: Unremarkable. No cardiomegaly. Mediastinum: Unremarkable. Normal mediastinal contour. Bones/joints: Unremarkable. No acute fracture. IMPRESSION: No acute disease. Electronically signed by: Cuba Babcock MD 03/15/2024 01:35 AM CDT RP Due to temporary technical issues with the PACS/[employer] reporting system, reports are being nico d by the in-house radiologist without review as a courtesy to ensure prompt reporting the interpreting radiologist is fully responsible for the content of the report. Transcribed Date/Time: 03/15/2024 5:40 AM
--- NOTE | 2024-03-15 11:06 | EKG ---
Test Date: 2024-03-14 Test Time: 23:37:55 [employer]ter: SHILA MEASUREMENT RESULTS: Intervals: Rate: 60 NV: 146 QRSD: 98 QT: 414 QTc: 414 Kell: P: 39 NV: 146 QRS: 17 T: 36 INTERPRETIVE STATEMENTS: Normal sinus rhythm Normal ECG No previous ECG available for comparison Electronically Signed On 03-15-24 11:05:28 CDT by Vince Iyer
== END 2024-03-15 03:26 | disposition home or self-care (01) ==
LOC: ER 23:17
DX: R07.89 Other chest pain (principal); R10.13 Epigastric pain
CPT/HCPCS: 36415; 71045; 80048; 83690; 84484; 84703; 85025; 85610; 93005; 99284

== ENCOUNTER 2024-04-18 09:25 | Emergency (ER) | payer OTHER ==
--- OUTSIDE RECORDS SUMMARY | 2024-04-18 09:30 | XMS REPORT | Continuity of Care Document ---
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 range: <=4.5. The reference range was not used to interpret this result as normal/abnormal. TRIG (test code = 2631869372) 63 mg/dL 30-170 LDL CHOL (test code = 64006-2) 94 mg/dL See_Comment [Facebook] The system which generated this result transmitted reference range: <=160. The reference range was not used to interpret this result as normal/abnormal. VLDL (test code = 9625232628) 13 mg/dL 5-60 Lab Interpretation (test code = 86156-1) Normal [facility] METABOLIC PANEL (NA, K, CL, CO2, GLUCOSE, BUN, CREATININE, CA)2019-09-19 18:50:00* Test Item Value Reference Range Interpretation Comme nts NA (test code = 0215792362) 138 mmol/L 135-145 K (test code = 6763579624) 5.0 mmol/L 3.5-5 CL (test code = 1788596453) 103 mmol/L 98-108 CO2 TOTAL (test code = 5664445303) 26 mmol/L 23-31 AGAP (test code = 6132673332) 2-16 BUN (test code = 5192900056) 12 mg/dL 7-23 GLUCOSE (test code = 3802581980) 113 mg/dL 70-110 H CREATININE (test code = 1740477456) 0.52 mg/dL 0.5-1.04 CALCIUM (test code = 9167474949) 9.2 mg/dL 8.6-10.6 eGFR Calculation (Non-) (test code = 4504803055) mL/min/1.73m2 eGFR Calculation () (test code = 0492537840) mL/min/1.73m2 TIM (test code = TIM) Association [...] imaging tests). Lab Interpretation (test code = 17268-2) Abnormal [facility]YCOSYLATED HEMOGLOBIN (A1C)2019-09-19 17:42:00* Test Item Value Reference Range Interpretation Comme nts HGB A1C (test code = 4548-4) 5.7 % 4-6 Lab Interpretation (test cod e = 87672-5) Normal [facility]YCOSYLATED HEMOGLOBIN (A1C)2019-09-19 17:42:00* Test Item Value Reference Range Interpretation Comme nts HGB A1C (test code = 4548-4) 5.7 % 4-6 Lab Interpretation (test cod e = 45839-4) Normal [facility] Notes Date/Time Note Provider Source 2022-11-30 09:34:00 [id number] [facility] [address] [place], [place] [address] PATIENT NAME: OXANA LARSON ADMIT DATE: 11/23/22 ACCOUNT NO: [id number] ROOM NO: F.2001 AGE: 26 SEX: F ADMITTING PHYSICIAN: Carrillo Ware MD ATTENDING PHYSICIAN: Carrillo Ware MD Provider Query QUERY TEXT: Condition Blood 360MD Query related questions should be directed to: [facility] Coding Query Helpline Based on your clinical [...] AM at 0934 PATIENT NAME: OXANA LARSON [facility] 2022-11-26 08:41:00 [facility] ([facility]) OB Disch REPORT#:[id number] REPORT STATUS: Signed DATE:11/26/22 TIME: 08 PATIENT: OXANA LARSON UNIT #: [id number] ROOM/BED: 2002 : 94 AGE: 26 SEX: [...] (Auto) (14.5 - 29.7 %) 30.2 H [place] % (Auto) (3.6 - 10.2 %) 6.4 Eos % (Auto) (0.0 - 3.0 %) 0.2 Baso % (Auto) (0.1 - 0.9 %) 0.4 Neut # (Auto) (K/mm3) 8.0 Lymph # (Auto) (K/mm3) 3.9 [place] # (Auto) (K/mm3) 0.8 Eos # (Auto) [...] Regular Activity: Light Duty, No Driving, No [place] for 6 Wks, No Lifting >10lbs Additional discharge routines: Attending Follow-Up (2 and 6 wks) Contraception discussed: abstinence for 4-6 weeks, will discuss at PP visit Prescriptions: e-prescribe Rx drug database reviewed: yes at 0845 RPT #:[id number] END OF REPORT [facility] 2022-11-25 09:18:00 [facility] OB Postpart Progr Note REPORT#:[id number] REPORT STATUS: Signed DATE:11/25/22 TIME: 917 PATIENT: OXANA LARSON UNIT #: [id number] ROOM/BED: : 94 AGE: 26 SEX: F ATTEND: Carrillo Ware MD ADM AUTHOR: Chrsisie Wesley NP * ALL edits or amendments [...] progress Plan: routine care at 0921 RPT #:[id number] END OF REPORT [facility] 2022-11-24 07:05:00 [facility] ([facility]) OB Delivery Note REPORT#:[id number] REPORT STATUS: Signed DATE:11/24/22 TIME: 704 PATIENT: OXANA LARSON UNIT #: [id number] ROOM/BED: [address] : [birth year] AGE: 26 SEX: F [...] [] Pre-delivery GBS status: GBS status: positive [place] evaluation at delivery: NRP certified personnel Admission EGA: Weeks: 37 Days: 4 Blood Loss/Details Blood loss at delivery: <1K: no sx hypovol=no hem, no more than expected EBL at delivery (ml's): 700 Baby A Information Baby A information Delivery date: 11/24/22 Delivery time: 607 status: live born Wt of baby (grams): 2530 Wt of baby (lbs/oz): 5 Gender: male 1 minute: 8 5 minutes: 9 Presentation: vertex Anomalies: none Nuchal cord Baby A Nuchal cord: yes (tight,deliv.through) Op/Inv Proc Note - Brief )(Start date: 11/24/2022 )(Start time: 06 )( Procedure(s) performed: prim low transverse c/s )( Primary Surgeon: Corie Worley )( Chemical Equipment Repairer(s): Jacqueline Welsh )( Pre-procedure diagnosis: 37 wk [...] the procedure well. Counts correct x 2. education assistant required as per standard of care [...] condition: stable in room at 0711 RPT #:[id number] END OF REPORT [facility] 2022-11-24 03:16:00 [facility] ([facility]) OB Intrapart Prog Note REPORT#:[id number] REPORT STATUS: Signed DATE:11/24/22 TIME: 0316 PATIENT: OXANA LARSON UNIT #: [id number] ROOM/BED: [address] : [birth year] AGE: 26 SEX: F [...] (Auto) (14.5 - 29.7 %) 30.6 H [place] % (Auto) (3.6 - 10.2 %) 6.3 Eos % (Auto) (0.0 - 3.0 %) 0.7 Baso % (Auto) (0.1 - 0.9 %) 0.2 Neut # (Auto) (K/mm3) 6.2 Lymph # (Auto) (K/mm3) 3.1 [place] # (Auto) (K/mm3) 0.6 Eos # (Auto) [...] agrees to proceed. . at 0321 RPT #:[id number] END OF REPORT [facility] 2022-11-24 00:01:00 [facility] ([facility]) OB Intrapart Prog Note REPORT#:[id number] REPORT STATUS: Signed DATE:11/24/22 TIME: 0001 PATIENT: OXANA LARSON UNIT #: [id number] [facility] AGE: 26 SEX: F ATTEND: [...] (Auto) (14.5 - 29.7 %) 30.6 H [place] % (Auto) (3.6 - 10.2 %) 6.3 Eos % (Auto) (0.0 - 3.0 %) 0.7 Baso % (Auto) (0.1 - 0.9 %) 0.2 Neut # (Auto) (K/mm3) 6.2 Lymph # (Auto) (K/mm3) 3.1 [place] # (Auto) (K/mm3) 0.6 Eos # (Auto) [...] home 18 units). . at 0013 RPT #:[id number] END OF REPORT [facility] 2022-11-23 16:13:00 [facility] ([facility]) OB Intrapart Prog Note REPORT#:[id number] REPORT STATUS: Signed DATE:11/23/22 TIME: 1613 PATIENT: OXANA LARSON UNIT #: [id number] ROOM[facility]BED: [facility] : 94 AGE: 26 SEX: [...] (Auto) (14.5 - 29.7 %) 30.6 H [place] % (Auto) (3.6 - 10.2 %) 6.3 Eos % (Auto) (0.0 - 3.0 %) 0.7 Baso % (Auto) (0.1 - 0.9 %) 0.2 Neut # (Auto) (K/mm3) 6.2 Lymph # (Auto) (K/mm3) 3.1 [place] # (Auto) (K/mm3) 0.6 Eos # (Auto) [...] with cytotec x 3, cook balloon placed 0930. GBS positive - will start PCN with pitocin. epidural prn. FHTs reassuring. GDM: BGs well controlled. at 1616 RPT #:[id number] END OF REPORT [facility] 2022-11-23 10:13:00 [facility] OB Admission / H P REPORT#:[id number] REPORT STATUS: Signed DATE:11/23/22 TIME: 1013 PATIENT: OXANA LARSON UNIT #: [id number] ROOM/BED: [address] : [birth year] AGE: 26 SEX: F [...] Result Date Time B/P Mean 76.0 11/23 08 B/P 103/64 11/23 08 Pulse 55 11/23 825 Temp 97.5 11/23 726 Resp 16 11/23 726 Vital Signs Date [...] (Auto) (14.5 - 29.7 %) 30.6 H [place] % (Auto) (3.6 - 10.2 %) 6.3 Eos % (Auto) (0.0 - 3.0 %) 0.7 Baso % (Auto) (0.1 - 0.9 %) 0.2 Neut # (Auto) (K/mm3) 6.2 Lymph # (Auto) (K/mm3) 3.1 [place] # (Auto) (K/mm3) 0.6 Eos # (Auto) [...] prn. BGs stable- continue to monitor. at [address] [place] [address] #:[id number] [facility] 23:00:00 [id number] [facility] [place] [address] PATIENT NAME: OXANA LARSON ADMIT DATE: 11/09/22 ACCOUNT NO: [id number] ROOM NO: AGE: 26 SEX: F ADMITTING PHYSICIAN: ATTENDING PHYSICIAN: Carrillo Ware MD ADMISSION DATE: 11/09/2022 20:19:00 This is triage evaluation on Oxana Larson for evaluation in OB ED on 11/09/2022 by Malini Alejo MD, triage hospitalist, seen per request of Dr. Barker, manager database administration for Dr. Daniel Worley. HISTORY OF PRESENT [...] healthy male. 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 She [...] DSD/RAG PATIENT NAME: OXANA LARSON Receipt ID: [id number] Authenticated and Edited by Malini Alejo MD On 11/22/22 7:07:16 AM at 0709 PATIENT NAME: OXANA LARSON [facility] 2022-10-03 15:07:00 [facility] ([facility]) OB Antepartum Prog Note REPORT#:[id number] REPORT STATUS: Signed DATE:10/03/22 TIME: 1507 PATIENT: OXANA LARSON UNIT #: [id number] ROOM[facility]BED: [facility] : 94 AGE: 26 SEX: F ATTEND: [...] Result Date Time B/P Mean 75.0 10/03 09 Pulse Ox 99 10/03 910 B/P 109/58 10/03 09 Temp 98.4 10/03 0911 Pulse 65 10/03 0911 Resp 16 10/03 0911 Vital Signs Date Temp Pulse Resp B/P [...] outpatient management. Precautions reviewed. at 1512 RPT #:[id number] END OF REPORT [facility] 2022-10-02 08:49:00 [facility] ([facility]) OB Antepartum Prog Note REPORT#:[id number] REPORT STATUS: Signed DATE:10/02/22 TIME: 0849 PATIENT: OXANA LARSON UNIT #: [id number] ROOM/BED: [address] : 94 AGE: 26 SEX: F [...] will be her support. at 0853 RPT #:[id number] END OF REPORT [facility] 2022-10-01 17:11:00 [facility] ([facility]) OB Admission / H P REPORT#:[id number] REPORT STATUS: Signed DATE:10/01/22 TIME: 171 PATIENT: OXANA LARSON UNIT #: [id number] ROOM/BED: [address] : 94 AGE: 26 SEX: F [...] it starting at 4AM, and had a [place] size clot on exam in the [facility]. [...] qhs, PNV PMH: PCOS, morbid obesity, pre-DM 2018 (early GDM diagnosed this ) PSH: laparoscopic [...] % (Auto) (14.5 - 29.7 %) 20.7 [place] % (Auto) (3.6 - 10.2 %) 5.0 Eos % (Auto) (0.0 - 3.0 %) 0.3 Baso % (Auto) (0.1 - 0.9 %) 0.2 Neut # (Auto) (K/mm3) 7.9 Lymph # (Auto) (K/mm3) 2.2 [place] # (Auto) (K/mm3) 0.5 Eos # (Auto) (K/mm3) 0.03 Baso # (Auto) (K/mm3) 0.0 Serology Treponema pallidum Ab (NONREACTIVE) NONREACTIVE Hep Bs Antigen (NONREACTIVE) NONREACTIVE Hepatitis C Antibody (NONREACTIVE) NONREACTIVE Hep C Ab Signal/Cutoff (<0.80) 0.09 HIV 1 2 Antibody (NONREACTIVE) NONREACTIVE Urines Urine Color (YELLOW) STRAW Urine Appearance (CLEAR) CLEAR Urine pH (5 - 9) 7.0 Ur Specific [place] (1.001 - 1.035) 1.004 Urine Protein (NEG) [...] Impressions: ULTRASOUND - US FET BIO PH ME W/O NST 10/01 1010 Report Impression - [...] sister will be her support. at 1728 [facility] #:[id number] END OF REPORT [facility] 2022-10-01 08:39:00 [facility] ([facility]) Clinical Note REPORT#:[id number] REPORT STATUS: Signed DATE:10/01/22 TIME: 0839 PATIENT: OXANA LARSON UNIT #: [id number] ROOM/BED: [facility] : 94 AGE: 26 SEX: F ATTEND: [...] with oral medications and insulin. Dr. Riggs ([facility]) manages her diabetes. Her next appointment [...] first trimester spontaneous not requiring D C. 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 Cervix visualized with minimal [...] care of the patient./dsd at 0954 RPT #:[id number] END OF REPORT [facility]"
[2024-04-18] MEDS ORDERED: ONDANSETRON 4 MG/2 ML VIAL ONE (10:10)
[2024-04-18] MEDS ORDERED: NA CHLORIDE 0.9% 1,000 ML ONE (10:10)
[2024-04-18] MEDS ORDERED: FAMOTIDINE 20 MG/2 ML VIAL IV ONE (10:10)
[2024-04-18] MEDS ORDERED: KETOROLAC 30 MG/ML INJ ONE (10:10)
[2024-04-18 10:40] LABS: Absolute Eosinophils 0.1 K/uL (0-0.5); Absolute Lymphocytes (CBC) 1.4 K/uL (0.7-4.9); Absolute Monocytes 0.5 K/uL (0.1-1.3); Absolute Neutrophil 3.7 K/uL (1.8-8.0); Basophils % 0.6 % (0-1.3); Eosinophils % 0.9 % (0-4.4); Hematocrit 37.7 % (36.0-45.0); Hemoglobin 12.6 g/dL (12.0-15.0); MCH 28.8 pg (27.0-35.0); MCHC 33.4 g/dL (32.0-36.0); MCV 86.1 fL (80-100); MPV 7.6 fL (7.6-11.3); Monocytes % 8.2 % (3.3-12.3); Neutrophils % 65.3 % (41.7-73.7); Platelets 272 thou/uL (152-406); RBC Red Blood Cell Count 4.38 M/uL (3.86-4.86); Red Cell Distribution Width 13.5 % (12.1-15.2)
--- NOTE | 2024-04-18 10:43 | RAD REPORT ---
EXAMINATION: US Abdomen Exam Limited CLINICAL HISTORY: [facility] MAIN Y EPIGASTRIC PAIN Bed Name: 19 COMPARISON: Abdomen ultrasound 04/04/2024 TECHNIQUE: Limited upper abdominal grayscale and color flow sonographic images. FINDINGS: Gallbladder: Numerous small shadowing layering stones. Gallbladder is partially contracted which limi ts evaluation. No significant wall thickening or pericholecystic fluid. Bile ducts: No intrahepatic or extrahepatic biliary dilatation. Common bile duct measures 4 mm. Liver: Visualized portions of the liver demonstrate normal echogenicity with no suspicious findings. Fluid: No ascites. IMPRESSION: Cholelithiasis within partially contracted gallbladder. No other sonographic abnormalities.
[2024-04-18 11:03] LABS: Albumin/Globulin Ratio 0.8 (1.1-1.8); Globulin 4.3 g/dL (2.3-3.5)
[2024-04-18 11:05] LABS: Sqamous Epithelial <5 /HPF (None Seen); Urine Bacteria <20 /HPF (<20); Urine Bilirubin 1+ (Negative); Urine Blood 1+ (Negative); Urine Clarity Turbid (Clear); Urine Color Dark-Yellow (Yellow); Urine Culture Reflex Order NOT NEEDED; Urine Glucose NEGATIVE (Negative); Urine Ketones NEGATIVE (Negative); Urine Microscopic Reflex YN ORDER UMIC; Urine Mucus Slight /HPF (None Seen); Urine Nitrite NEGATIVE (Negative); Urine Protein NEGATIVE (Negative); Urine RBC <5 /HPF (None Seen); Urine Urobilinogen Normal (Normal); Urine WBC <5 /HPF (<5)
--- NOTE | 2024-04-18 11:14 | ER ---
Nurse's Notes [facility] Name: Rosette Olson Age: 28 yrs Sex: Female : 1995 Arrival Date: 04/18/2024 Time: 09:25 Bed 19 Private MD: Diagnosis: Calculus of gallbladder and bile duct with acute cholecystitis with obstruction;Epigastric abdominal tenderness;Unspecified jaundice Presentation: 04/18 09:39 Chief complaint: Patient states: chest pains radiating to her abdomen X 1 month , was iw told she has gallstones , this episode started last night. Coronavirus screen: At this time, the client does not indicate any symptoms associated with coronavirus-19. Ebola Screen: No symptoms or risks identified at this time. 09:39 Method Of Arrival: Ambulatory iw 09:42 Initial Sepsis Screen: Does the patient meet any 2 criteria? No. Patient's initial iw sepsis screen is negative. Does the patient have a suspected source of infection? No. Patient's initial sepsis screen is negative. Risk Assessment: Do you want to hurt yourself or someone else? Patient reports no desire to harm self or others. 09:42 Acuity: JOHNNY 3 iw 09:42 Onset of symptoms was April 18, 2024. iw Triage Assessment: 10:00 General: Appears in no apparent distress. comfortable, Behavior is calm, cooperative, db quiet. Pain: Complains of pain in right upper quadrant. MANAGER COMMUNITY: 09:43 LMP N/A - control method, Not iw Historical: - Allergies: 09:42 No Known Allergies; iw - Home Meds: 09:42 None [Active]; iw - PMHx: 09:42 None; iw - PSHx: 09:42 ; Gastric Bypass; iw - Immunization history:: Adult Immunizations not up to date. - Infectious Disease History:: Denies. - Social history:: Smoking status: Patient denies any tobacco usage or history of. - Family history:: not pertinent. Screenin:00 [facility] ED Fall Risk Assessment (Adult) History of falling in the last 3 months, db including since admission No falls in past 3 months (0 pts) Confusion or Disorientation No (0 pts) Intoxicated or Sedated No (0 pts) Impaired Gait No (0 pts) Mobility Assist Device Used No (0 pt) Altered Elimination No (0 pt) Score/Fall Risk Level 0 - 2 = Low Risk Oriented to surroundings, Maintained a safe environment. Abuse screen: Denies threats or abuse. Denies injuries from another. Nutritional screening: No deficits noted. Tuberculosis screening: No symptoms or risk factors identified. Assessment: 10:50 Reassessment: Patient appears in no apparent distress at this time. Patient and/or db family updated on plan of care and expected duration. Pain level reassessed. Patient is alert, oriented x 3, equal unlabored respirations, skin warm/dry/pink. General: Appears in no apparent distress. comfortable. 12:00 Reassessment: Patient appears in no apparent distress at this time. Patient and/or db family updated on plan of care and expected duration. Pain level reassessed. Patient is alert, oriented x 3, equal unlabored respirations, skin warm/dry/pink. Pain: Complains of pain in right upper quadrant Pain radiates to chest and epigastric area Pain began gradually. Neuro: Level of Consciousness is awake, alert, obeys commands, Oriented to person, place, time, situation, Speech is normal. Cardiovascular: Reports chest pain. Respiratory: Airway is patent Respiratory effort is even, unlabored, Respiratory pattern is regular, symmetrical. 13:17 Reassessment: Patient appears in no apparent distress at this time. Patient and/or db family updated on plan of care and expected duration. Pain level reassessed. Patient is alert, oriented x 3, equal unlabored respirations, skin warm/dry/pink. Pain: Pain currently is 0 out of 10 on a pain scale. 13:18 Reassessment: REPORT CALLED TO DOMINIK MATHUR. db 14:47 Reassessment: Patient appears in no apparent distress at this time. Patient and/or db family updated on plan of care and expected duration. Pain level reassessed. Patient is alert, oriented x 3, equal unlabored respirations, skin warm/dry/pink. EMS ARRIVED FOR PATIENT TRANSPORT. REPORT HANDED OFF. Vital Signs: 09:39 BP 110 / 64; Pulse 79; Resp 16; Temp 98.1; Pulse Ox 100% on R/A; Weight 113.4 kg; iw Height 5 ft. 3 in. ; 12:00 BP 114 / 73; Pulse 66; Resp 16; Pulse Ox 100% on R/A; db 13:15 BP 104 / 52; Pulse 61; Resp 16; Temp 98.1(O); Pulse Ox 100% on R/A; db 14:00 BP 108 / 55; Pulse 52; Resp 16; Pulse Ox 98% on R/A; db 09:39 Body Mass Index 44.29 (113.40 kg, 160.02 cm) iw ED Course: 09:29 Patient arrived in ED. al6 09:29 Jesús Alvarez MD is Attending Physician. orlin 09:42 Triage completed. iw 09:42 Arm band placed on. iw 09:50 Warm blanket given. Pillow given. db 09:53 Rosa Mancini, RN is Primary Nurse. db 09:53 Patient taken to ultrasound. via wheelchair. db 10:00 Patient has correct armband on for positive identification. Bed in low position. Call db light in reach. Side rails up X 1. 10:23 Abdomen Limited US In Process Unspecified. EDMS 10:30 Initial lab(s) drawn, by me, sent to lab. Urine collected: EKG done. Inserted saline db lock: 22 gauge in right antecubital area, using aseptic technique. Blood collected. Flushed with 10 mL NS. 11:23 initiated transfer to [facility], faxed face sheet and US report as requested bd by Chelsie at transfer center. 12:00 Patient moved back from [facility]. db 12:14 Cholangiogram In Process Unspecified. EDMS 14:47 Provided Education on: TRANSFER. Pulse ox on. NIBP on. db 14:47 No provider procedures requiring assistance completed. Patient transferred, IV remains db in place. Patient maintains SpO2 saturation greater than 95% on room air. Administered Medications: 10:40 Drug: Famotidine IVP 20 mg IVP once; dilute with 10 mL 0.9% NaCl; give over 2 minutes db Route: IVP; Site: right antecubital; 13:15 Follow up: Response: No adverse reaction db 10:40 Drug: TORadol - Ketorolac IVP 15 mg IVP once; if upt neg Route: IVP; Site: right db antecubital; 13:15 Follow up: Response: No adverse reaction db 10:40 Drug: Ondansetron IVP 4 mg IVP once; over 2 minutes Route: IVP; Site: right antecubital;db 13:15 Follow up: Response: No adverse reaction db 10:40 Drug: NS 0.9% IV 1000 ml IV at 1 bolus Per protocol; to be given as a bolus over 60 db minutes Route: IV; Rate: 1 bolus; Site: right antecubital; 13:15 Follow up: Response: No adverse reaction; IV Status: Completed infusion; IV Intake: db 1000ml 12:00 Drug: Piperacillin-Tazobactam IVPB 3.375 grams IVPB once over 60 mins; (mix in NS 100 db mL) Route: IVPB; Infused Over: 60 mins; Site: right antecubital; 13:14 Follow up: Response: No adverse reaction; IV Status: Completed infusion; IV Intake: db 100ml 12:00 Drug: morphine IVP or IV 2 mg IVP once over 4 mins Route: IVP; Infused Over: 4 mins; db Site: right antecubital; 13:14 Follow up: Response: No adverse reaction; Pain is decreased db 14:45 Not Given (Patient Refused): morphineor iv 2 mg IVP once over 4 mins db Medication: 14:47 VIS not applicable for this client. db Intake: 13:14 IV: 100ml; Total: 100ml. db 13:15 IV: 1000ml; Total: 1100ml. db Outcome: 11:14 ER care complete, transfer ordered by MD. ordaz 14:47 Transferred by ground EMS Note: TRANSFERRED TO [facility] db 14:47 Condition: stable 14:47 Instructed on the need for transfer, 14:50 Patient left the ED. db Signatures: Dispatcher [employer] EDMS Nishi Membreno Corey, MD MD cha Williams, Irene, RN RN iw Benton, Danielle, RN RN db Landin, Alissa al6 Corrections: (The following items were deleted from the chart) 13:20 13:15 BP 104 / 52; Pulse 61bpm; Resp 16bpm; Pulse Ox 100% RA; db db
--- NOTE | 2024-04-18 11:14 | EDPHYS ---
Physician Documentation [facility] Name: Rosette Olson Age: 28 yrs Sex: Female : 1995 Arrival Date: 04/18/2024 Time: 09:25 Bed 19 Private MD: ED Physician Jesús Alvarez HPI: 04/18 10:30 This 28 yrs old Female presents to ER via Ambulatory with complaints of Chest orlin Pain, Abdominal Pain. 10:30 The patient or guardian reports chest pain that is located primarily in the epigastric orlin area, anterior chest wall. The pain does not radiate. Associated signs and symptoms: The patient has no apparent associated signs or symptoms. The chest pain is described as aching. Duration: The patient or guardian reports multiple episodes, that are intermittent. Modifying factors: The symptoms are alleviated by nothing. the symptoms are aggravated by nothing. Severity of pain: At its worst the pain was moderate in the emergency department the pain is unchanged. The patient has experienced similar episodes in the past, several times. 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 - Infectious Disease History:: Denies. - Social history:: Smoking status: Patient denies any tobacco usage or history of. - Family history:: not pertinent. ROS: 10:30 Constitutional: Negative for fever, chills, and weight loss, Eyes: Negative for injury, orlin pain, redness, and discharge, ENT: Negative for injury, pain, and discharge, Neck: Negative for injury, pain, and swelling, Cardiovascular: Negative for chest pain, palpitations, and edema, Respiratory: Negative for shortness of breath, cough, wheezing, and pleuritic chest pain, Back: Negative for injury and pain, : Negative for injury, bleeding, discharge, and swelling, MS/Extremity: Negative for injury and deformity, Skin: Negative for injury, rash, and discoloration, Neuro: Negative for headache, weakness, numbness, tingling, and seizure, Psych: Negative for depression, anxiety, suicide ideation, homicidal ideation, and hallucinations, Allergy/Immunology: Negative for hives, rash, and allergies, Endocrine: Negative for neck swelling, polydipsia, polyuria, polyphagia, and marked weight changes, Hematologic/Lymphatic: Negative for swollen nodes, abnormal bleeding, and unusual bruising, 10:30 Abdomen/GI: Positive for abdominal pain, of the epigastric area and right upper quadrant, Exam: 10:30 Constitutional: This is a well developed, well nourished patient who is awake, alert, orlin and in no acute distress. Head/Face: Normocephalic, atraumatic. Eyes: Pupils equal round and reactive to light, extra-ocular motions intact. Lids and lashes normal. Conjunctiva and sclera are non-icteric and not injected. Cornea within normal limits. Periorbital areas with no swelling, redness, or edema. ENT: Nares patent. No nasal discharge, no septal abnormalities noted. Tympanic membranes are normal and external auditory canals are clear. Oropharynx with no redness, swelling, or masses, exudates, or evidence of obstruction, uvula midline. Mucous membranes moist. Neck: Trachea midline, no thyromegaly or masses palpated, and no cervical lymphadenopathy. Supple, full range of motion without nuchal rigidity, or vertebral point tenderness. No Meningismus. Chest/axilla: Normal chest wall appearance and motion. Nontender with no deformity. No lesions are appreciated. Cardiovascular: Regular rate and rhythm with a normal S1 and S2. No gallops, murmurs, or rubs. Normal PMI, no JVD. No pulse deficits. Respiratory: Lungs have equal breath sounds bilaterally, clear to auscultation and percussion. No rales, rhonchi or wheezes noted. No increased work of breathing, no retractions or nasal flaring. Back: No spinal tenderness. No costovertebral tenderness. Full range of motion. Skin: Warm, dry with normal turgor. Normal color with no rashes, no lesions, and no evidence of cellulitis. MS/ Extremity: Pulses equal, no cyanosis. Neurovascular intact. Full, normal range of motion., bilateral aka Neuro: Awake and alert, GCS 15, oriented to person, place, time, and situation. Cranial nerves II-XII grossly intact. Motor strength 5/5 in all extremities. Sensory grossly intact. Cerebellar exam normal. Normal gait. Psych: Awake, alert, with orientation to person, place and time. Behavior, mood, and affect are within normal limits. 10:55 ECG was reviewed by the Attending Physician. [facility] Vital Signs: 09:39 BP 110 / 64; Pulse 79; Resp 16; Temp 98.1; Pulse Ox 100% on R/A; Weight 113.4 kg; iw Height 5 ft. 3 in. ; 12:00 BP 114 / 73; Pulse 66; Resp 16; Pulse Ox 100% on R/A; db 13:15 BP 104 / 52; Pulse 61; Resp 16; Temp 98.1(O); Pulse Ox 100% on R/A; db 14:00 BP 108 / 55; Pulse 52; Resp 16; Pulse Ox 98% on R/A; db 09:39 Body Mass Index 44.29 (113.40 kg, 160.02 cm) iw MDM: 09:29 Medical Screening Exam initiated [facility] 10:32 Differential diagnosis: abnormal EKG, acute myocardial infarction, acute pericarditis, orlin cholecystitis, Cholelithiasis costochondritis, esophagitis, gastritis, pancreatitis, pericarditis, pleurisy, pulmonary embolus, stable angina, unstable angina. HEART Score: History: Slightly Suspicious (0), ECG: Normal (0), Age: < or = 45 years (0), Risk Factors: No Risk Factors Known (0). MARIA ESTHER Risk Score: TOTAL SCORE = 0. Data reviewed: vital signs, nurses notes, lab test result(s), CBC, electrolytes, hepatic panel, EKG, radiologic studies, ultrasound. Consideration of Admission/Observation Escalation of care including admission/observation considered. I considered the following discharge prescriptions or medication management in the emergency department Medications were administered in the Emergency Department. See MAR. Independent interpretation of the following test(s) in the Emergency Department EKG: See my EKG interpretation above. Test considered but Not performed: CT: no ct ab/pel. Historians other than the Patient: pt well informed. Care significantly affected by the following chronic conditions: Obesity, none. 04/18 09:38 Order name: CBC with Diff; Complete Time: 10:[address] [facility] 04/18 09:38 Order name: CMP [facility] 04/18 09:38 Order name: Lipase [facility] 04/18 09:38 Order name: Test, Urine; Complete Time: 11:[address] [facility] 04/18 09:38 Order name: Urinalysis w/ reflexes; Complete Time: 11:[address] [facility] 04/18 09:38 Order name: Abdomen Limited US; Complete Time: 10:[address] [facility] 04/18 11:16 Order name: Cholangiogram; Complete Time: 12:21 EDVT 04/18 10:32 Order name: EKG; Complete Time: 10:[address] [facility] 04/18 09:38 Order name: IV Saline Lock; Complete Time: 10:[address] [facility] 04/18 09:38 Order name: Labs collected and sent; Complete Time: 10:[address] [facility] 04/18 10:32 Order name: EKG - Nurse/Tech; Complete Time: 10:[address] [facility] EC:55 Rate is 53 beats/min. Rhythm is regular. QRS [place] is Normal. CA interval is normal. QRS orlin interval is normal. QT interval is normal. No Q waves. T waves are Normal. No ST changes noted. Clinical impression: Sinus bradycardia and No evidence of ischemia. Interpreted by me. Administered Medications: 10:40 Drug: Famotidine IVP 20 mg IVP once; dilute with 10 mL 0.9% NaCl; give over 2 minutes db Route: IVP; Site: right antecubital; 13:15 Follow up: Response: No adverse reaction db 10:40 Drug: TORadol - Ketorolac IVP 15 mg IVP once; if upt neg Route: IVP; Site: right db antecubital; 13:15 Follow up: Response: No adverse reaction db 10:40 Drug: Ondansetron IVP 4 mg IVP once; over 2 minutes Route: IVP; Site: right antecubital;db 13:15 Follow up: Response: No adverse reaction db 10:40 Drug: NS 0.9% IV 1000 ml IV at 1 bolus Per protocol; to be given as a bolus over 60 db minutes Route: IV; Rate: 1 bolus; Site: right antecubital; 13:15 Follow up: Response: No adverse reaction; IV Status: Completed infusion; IV Intake: db 1000ml 12:00 Drug: Piperacillin-Tazobactam IVPB 3.375 grams IVPB once over 60 mins; (mix in NS 100 db mL) Route: IVPB; Infused Over: 60 mins; Site: right antecubital; 13:14 Follow up: Response: No adverse reaction; IV Status: Completed infusion; IV Intake: db 100ml 12:00 Drug: morphine IVP or IV 2 mg IVP once over 4 mins Route: IVP; Infused Over: 4 mins; db Site: right antecubital; 13:14 Follow up: Response: No adverse reaction; Pain is decreased db 14:45 Not Given (Patient Refused): morphineor iv 2 mg IVP once over 4 mins db Disposition Summary: 04/18/24 11:14 Transfer Ordered Notes: Transfer Location: [facility] orlin Reason: Higher level of care orlin Condition: Stable orlin Problem: new orlin Symptoms: have improved orlin Accepting Physician: to [facility](04/18/24 14:50) db Diagnosis - Calculus of gallbladder and bile duct with acute cholecystitis with obstruction orlin - Epigastric abdominal tenderness orlin - Unspecified jaundice orlin Discharge Instructions: - Discharge Summary Sheet orlin - Abdominal Pain, Adult orlin - Cholelithiasis orlin - Cholelithiasis, [id number] orlin - Abdominal Pain, Adult, [id number] orlin - Cholecystitis, [id number] orlin Forms: - Medication Reconciliation Form orlin - SBAR form orlin Prescriptions: - ondansetron HCl 4 mg Oral tablet - take 1 tablet ORAL route every 6-8 hours for 5 days; 20 tablet; Refills: 0, [facility] Product Selection Permitted - Pepcid 20 mg Oral tablet - take 1 tablet ORAL route every 12 hours for 21 days; 42 tablet; Refills: 0, orlin Product Selection Permitted - dicyclomine 20 mg Oral tablet - take 1 tablet ORAL route 4 times per day; 28 tablet; Refills: 0, Product orlin Selection Permitted Signatures: Dispatcher [employer] Jesús Leonardo MD MD cha Williams, Irene, RN RN iw Benton, Danielle, RN RN db Corrections: (The following items were deleted from the chart) 12:26 11:[address] [facility] orlin 14:50 12:26 to [facility] orlin db
[2024-04-18] MEDS ORDERED: MORPHINE 2 MG/ML SYR ONE (12:12)
[2024-04-18] MEDS ORDERED: PIPERACIL/TAZO 3.375 GM VIAL IV ONE (12:13)
[2024-04-18] MEDS ORDERED: NA CHLORIDE 0.9% 100 ML ONE (12:13)
--- NOTE | 2024-04-18 12:18 | RAD REPORT ---
EXAMINATION: MR CHOLANGIOGRAM CLINICAL INDICATION: Female, 28 years old. [facility] MAIN N abd pain er 17 TECHNIQUE: Multiplanar, multisequence MR imaging of the abdomen without intravenous contrast, and wit h specific attention to the biliary system. Unless otherwise specified, incidental findings do not require dedicated imaging follow-up. 3D MIP reconstruction performed. COMPARISON: Abdomen ultrasound 04/18/2024 FINDINGS: GALLBLADDER: Multiple layering small stones. No wall thickening, or pericholecystic fluid. BILE DUCTS: No biliary ductal dilatation. The most distal common bile duct lacks fluid opacification which somewhat limits evaluation, without findings to suggest choledocholithiasis. No contour abnormality or stricture. LIVER: Normal in size, contour, and signal without evidence of fatty infiltration or iron deposition. No focal lesion. PANCREAS: Normal signal. No mass, ductal dilation, or nicki-pancreatic fluid. SPLEEN: Normal size. No focal lesion. ADRENALS: Normal; no mass. KIDNEYS: Normal size and contour. No hydronephrosis. LYMPH NODES: No lymphadenopathy. ADDITIONAL FINDINGS: None. IMPRESSION: Cholelithiasis. No evidence of intra or extrahepatic biliary ductal dilation, or choledocholithiasis.
[2024-04-18 13:44] LABS: Albumin 3.4 g/dL (3.4-5.0); Anion Gap 8.6 mEq/L (5.0-15.0); Bilirubin Total 2.5 mg/dL (0.2-1.0); Potassium 3.6 mEq/L (3.5-5.1); Protein, Total 7.7 g/dL (6.4-8.2)
[2024-04-18 19:18] VITALS: TEMP 98.1
[2024-04-18 19:22] VITALS: BP 108/55; O2SAT 98
== END 2024-04-18 14:50 | disposition short-term general hospital (02) ==
LOC: ER 09:25
DX: K80.63 Calculus of gallbladder and bile duct with acute cholecystitis with obstruction (principal); R17 Unspecified jaundice
CPT/HCPCS: 96365; 96361; 85025; 81001; 36415; 81025; 83690; 80053; 74181; 76705; 96375; 99285; J2543; J2270; J2405; J7030